=== PATIENT | female | born 1990 | race African-American/Black ===

== ENCOUNTER 2020-09-19 21:17 | Inpatient (IN) | payer MEDICAID ==
--- NOTE | 2020-09-19 21:26 | History and Physical Report ---
History of Present Illness Date of examination: 09/19/20 (IOL d/t IUGR) Date of admission: 09/19/20 Chief complaint: I'm here to be induced. History of present illness: Pt presented her first [facility] appointment d/t size smaller than dates in the office. She was found to IUGR, overall growth less than 4th% and AC less than 1%. Per [facility] recommendation, pt was told to come in for IOL @ 1999 on 09/19. EDC Confirmation: 10/09/2020 Gestational Age: 37.1 weeks on date of admission Past History : 1 Term Births: 0 Premature Births: 0 Living Children: 0 Para: 0 Mult. Births: 0 Prev : 0 Prev. attempt? 0 Aborta: 0 Elect. Ab: 0 Spont. Ab: 0 Ectopics: 0 Risk Factors: Smoked Tobacco Use: Never smoker Smokeless Tobacco Use: Never Passive smoke exposure: no Drug use: no HIV high-risk behavior: low risk Alcohol use: no Dietary Counseling: pn yes Past Medical History: Negative Past Medical History Past Surgical History: Negative Past Surgical History Past Medical History Surgery (Non-cook fish eggs): Negative Past Surgical History Abnormal PAP: negative ASHISH Exposure: negative Infertility: negative Uterine Anomaly: negative Uterine Surgery (not C/S): negative Other Gynecologic Problems: negative Family Hx: heart disease - father, 2019 DM - mother's side Social Hx: single Infection History Hx of STD: none HIV Risk Eval: low risk Hepatitis B Risk Eval: low risk Personal hx. of genital herpes: no Varicella/Chicken Pox Status: Previous Disease Genetic History Congenital Heart Defect: Mom: no Dad: no Delia Disease: Mom: no Dad: no Thalassemia Mom: no Dad: no Neural Tube Defect Mom: no Dad: no Down's Syndrome Mom: no Dad: no Isaias-Sachs Mom: no Dad: no Sickle Cell Disease/Trait Mom: no Dad: no Hemophilia Mom: no Dad: no Muscular Dystrophy Mom: no Dad: no Cystic Fibrosis Mom: no Dad: no Callahan Chorea Mom: no Dad: no Mental Retardation Mom: no Dad: no Fragile X Mom: no Dad: no Other Genetic/Chromosomal Disorder Mom: no Dad: no Child w/other defect Mom: no Dad: no Enviromental Exposures Xray Exposure: no Medication, drug, or alcohol use since LMP: no Chemical/Other Exposure: no Exposure to Cat Liter: no Hx of Parvovirus (Fifth Disease): no Occupational Exposure to Children: none Current Allergies: No known allergies Past History Past Medical History: no pertinent history Past Surgical History: no surgical history Family/Genetic History: diabetes, heart disease Social history: no significant social history - Obstetrical History Expected Date of Delivery: 10/09/20 Actual Gestation: 37 Week(s) 2 Day(s) : 1 Para: 0 Hx # Term Pregnancies: 0 Number of Pregnancies: 0 Spontaneous Abortions: 0 Induced : 0 Number of Living Children: 0 Medications and Allergies Allergies Allergy/AdvReac Type Severity Reaction Status Date / Time No Known Allergies Allergy Verified 09/19/20 21:41 Review of Systems All systems: negative - Vital Signs Vital signs: IOL delayed d/t patient's late arrival to L&D. Pt was told to arrive @ 1999, but she did not arrive until well after 2100. Pt with many questions regarding why IOL was recommended and the risk of waiting until later for IOL. Discuss with patient finding at [facility] appointment. Absent of high blood pressures, and pt is a non smoker, it is possible that the IUGR could be the result of an issue with the placenta, or it could be genetic (as patient is small in stature). Pt asked what could happen if she waited for IOL. We discussed the risk of waiting could result in a stillborn infant. We also discussed the IOL process: it may take up to three days and the different methods and medications used for IOL. Pt then stated that she would like NO vaginal exams. Explained that some vaginal exams will be needed to check on process of labor and to let the provider know what the next plan would be in the IOL process. Pt and family member verbalized understanding. Pt was given the opportunity to ask additional questions and she stated that she had none and would like to proceed with IOL process. - Physical Exam Breasts: Positive: deferred Cardiovascular: Regular rate Lungs: Positive: Normal air movement Abdomen: Positive: normal appearance, soft Genitourinary (Female): Positive: normal external genitalia, normal perenium Vulva: both: normal Vagina: Positive: normal moisture Uterus: Positive: normal size, normal contour (For 37 weeks gestation. ) Extremities: Positive: normal - Obstetrical FHR: category 1 Uterine Contraction Monitor Mode: External Cervical Dilatation: 0 Cervical Effacement Percentage: 0 station: -3 Uterine Contraction Pattern: Absent Results Result Diagrams: 09/19/20 23:00 All other labs normal. GBS NEGATIVE HBsAg Screen Negative Negative *1 RPR Non Reactive Non Reactive *2 Rubella Antibodies, IgG 2.61 index Immune >0.99 *3 Non-immune <0.90 Equivocal 0.90 - 0.99 Immune >0.99 ABO Grouping O *4 Rh Factor Positive *5 Antibody Screen Negative Negative *6 Tests: (2) HB Solu + Rflx Fra (635461) Hemoglobin (Hgb) Solubility Negative Negative *31 Tests: (3) HIV Ag/Ab with Reflex (030342) HIV Screen 4th Generation wRfx Non Reactive Non Reactive *32 Tests: (5) HCV Ab w/Rflx to Verification ([id number]) ! HCV Ab <0.1 s/co ratio 0.0-0.9 *34 Tests: (6) Comment: ([id number]) ! Comment: SPRCS *35 Non reactive HCV antibody screen is consistent with no HCV infection, unless recent infection is suspected or other evidence exists to indicate HCV infection. Assessment and Plan A: 30 y.o. @ 37 + weeks, IOL d/t IUGR. - Patient Problems (1) Intrauterine growth restriction (IUGR) affecting care of mother, third trimester, single gestation Onset Date: ~09/19/20 Current Visit: Yes Status: Acute Plan to address problem: Admit to labor and delivery. Initiate IV. Draw admission labs. Start IOL with Cervidil. Continue to monitor status during labor through EFM. (2) 37 or more weeks gestation of Onset Date: ~09/19/20 Current Visit: Yes Status: Acute Plan to address problem: Monitor status through EFM.
[2020-09-19] MEDS ORDERED: LIDOCAINE (2%) 20 MG/1 ML VIAL 20 ML MDV INFILTRATI ONE (21:27)
[2020-09-19] MEDS ORDERED: TERBUTALINE 1 MG/1 ML INJ SUB-Q PRN (21:27)
[2020-09-19] MEDS ORDERED: METHYLERGONOVINE MALEATE 0.2 MG/ML VIAL IM PRN (21:27)
[2020-09-19] MEDS ORDERED: PROMETHAZINE 25 MG TAB PO PRN (21:27)
[2020-09-19] MEDS ORDERED: MINERAL OIL 30 ML ORAL LIQD PO PRN (21:27)
[2020-09-19] MEDS ORDERED: ONDANSETRON 4 MG/2 ML INJ IV PRN (21:27)
[2020-09-19] MEDS ORDERED: OXYTOCIN 10 UNIT/1 ML INJ IM PRN (21:27)
[2020-09-19] MEDS ORDERED: DINOPROSTONE 10 MG VAG SUPP VG ONE (21:27)
[2020-09-19] MEDS ORDERED: miSOPROStol 200 MCG TAB PR PRN (21:27)
[2020-09-19] MEDS ORDERED: LOPERAMIDE 2 MG CAP PO PRN (21:27)
[2020-09-19] MEDS ORDERED: ePHEDrine SULFATE 50 MG/1 ML INJ IV PRN (21:27)
[2020-09-19] MEDS ORDERED: CARBOPROST TROMETHAMINE 250 MCG/1 ML INJ IM PRN (21:27)
[2020-09-19] MEDS ORDERED: NALOXONE 0.4 MG/1 ML INJ IV PRN (21:27)
[2020-09-19] MEDS ORDERED: ACETAMINOPHEN 325 MG TAB PO PRN (21:27)
[2020-09-19] MEDS ORDERED: OXYTOCIN DRIP 30 UNITS/500 ML BAG IV SCH (22:00)
[2020-09-19] MEDS ORDERED: diphenhydrAMINE 25 MG CAP PO PRN (22:13)
[2020-09-19 23:20] LABS: Hematocrit 30.6 % (30.3-42.9); Hemoglobin 10.9 gm/dl (10.1-14.3); Mean Corpuscular HGB Conc 36 % (30-34); Mean Corpuscular Volume 80 fl (79-97); Platelet Count 200 K/mm3 (140-440); Red Blood Count 3.82 M/mm3 (3.65-5.03); Red Cell Distribution Width 13.8 % (13.2-15.2)
--- NOTE | 2020-09-20 06:40 | Progress Note ---
Assessment and Plan Cervidil due to be removed @ 1100. Pt asks that we limit her vaginal exams, deferred this AM Pt aware she will be checked when cervidil is removed. Cat 1 FHT. Occ mild ctx noted. Pt continues to question the dx of IUGR and rational for IOL We spoke for @ 20min this morning. Answered all her questions/concerns. Pt states she understands. P: continue with cervidil Will allow AM care and diet. Plan to start pitocin @ 1300 Subjective - Subjective Date of service: 09/20/20 (Pt sitting up in bed States she does have some mild ctx) Principal diagnosis: IUGR @ 37w Patient reports: movement normal Objective - Vital Signs Vital Signs: Vital Signs - 12hr 09/19/20 09/19/20 09/19/20 21:32 22:22 22:27 Temperature 98.2 F Pulse Rate 95 H 100 H 108 H Respiratory 12 Rate Blood Pressure Blood Pressure 112/70 [Left] O2 Sat by Pulse 98 98 98 Oximetry 09/19/20 09/19/20 09/19/20 22:32 22:37 22:42 Temperature Pulse Rate 107 H 91 H 98 H Respiratory Rate Blood Pressure 112/70 Blood Pressure [Left] O2 Sat by Pulse 97 98 98 Oximetry 09/19/20 09/19/20 09/19/20 22:47 22:52 22:57 Temperature Pulse Rate 95 H 95 H 94 H Respiratory Rate Blood Pressure Blood Pressure [Left] O2 Sat by Pulse 99 99 100 Oximetry 09/19/20 09/19/20 09/19/20 23:02 23:07 23:12 Temperature Pulse Rate 92 H 94 H 89 Respiratory Rate Blood Pressure Blood Pressure [Left] O2 Sat by Pulse 99 99 99 Oximetry 09/19/20 09/19/20 09/19/20 23:17 23:22 23:27 Temperature Pulse Rate 92 H 84 82 Respiratory Rate Blood Pressure Blood Pressure [Left] O2 Sat by Pulse 99 99 100 Oximetry 09/19/20 09/19/20 09/19/20 23:32 23:37 23:42 Temperature Pulse Rate 94 H 93 H 95 H Respiratory Rate Blood Pressure Blood Pressure [Left] O2 Sat by Pulse 100 99 98 Oximetry 09/19/20 09/19/20 09/19/20 23:47 23:52 23:57 Temperature Pulse Rate 95 H 92 H 89 Respiratory Rate Blood Pressure Blood Pressure [Left] O2 Sat by Pulse 100 96 98 Oximetry 09/20/20 09/20/20 09/20/20 00:02 00:07 00:12 Temperature Pulse Rate 85 92 H 99 H Respiratory Rate Blood Pressure Blood Pressure [Left] O2 Sat by Pulse 99 99 99 Oximetry 09/20/20 09/20/20 09/20/20 00:17 00:22 00:27 Temperature Pulse Rate 91 H 98 H 104 H Respiratory Rate Blood Pressure Blood Pressure [Left] O2 Sat by Pulse 99 99 99 Oximetry 09/20/20 09/20/20 09/20/20 00:32 00:37 00:42 Temperature Pulse Rate 92 H 92 H 88 Respiratory Rate Blood Pressure Blood Pressure [Left] O2 Sat by Pulse 100 99 99 Oximetry 09/20/20 09/20/20 09/20/20 00:47 00:52 00:57 Temperature Pulse Rate 91 H 86 84 Respiratory Rate Blood Pressure Blood Pressure [Left] O2 Sat by Pulse 99 99 99 Oximetry 09/20/20 01:02 Temperature Pulse Rate 99 H Respiratory Rate Blood Pressure Blood Pressure [Left] O2 Sat by Pulse 97 Oximetry - Exam Breasts: deferred Cardiovascular: Regular rate Lungs: Normal air movement Abdomen: Present: normal appearance, soft. Absent: distention, tenderness Uterus: Present: normal FHR: auscultation normal, category 1 Uterine Contraction Monitor Mode: External Uterine Contraction Pattern: Irregular Uterine Tone Measurement Phase: Resting Uterine Contraction Intensity: Mild Extremities: normal Deep Tendon Reflex Grade: Normal +2 - Labs Labs: Abnormal Labs 09/19/20 23:00 MCHC 36 H Laboratory Results - last 24 hr 09/19/20 09/19/20 09/20/20 23:00 23:00 00:50 WBC 8.2 RBC 3.82 Hgb 10.9 Hct 30.6 MCV 80 MCH 29 MCHC 36 H RDW 13.8 Plt Count 200 Syphilis IgG Antibody Nonreactive Blood Type O POSITIVE Antibody Screen Negative
[2020-09-20] MEDS ORDERED: DINOPROSTONE 10 MG VAG SUPP VG ONE (15:00)
--- NOTE | 2020-09-20 22:18 | Progress Note ---
Assessment and Plan - Patient Problems (1) 37 or more weeks gestation of Onset Date: ~09/19/20 Current Visit: Yes Status: Acute Plan to address problem: FHT's cat 1 Serial IOL explained. Cervidil to be removed @3a, will allow rest and am care then reassess for IOL. Patient voiced understanding and agrees with POC (2) Intrauterine growth restriction (IUGR) affecting care of mother, third trimester, single gestation Onset Date: ~09/19/20 Current Visit: Yes Status: Acute Subjective - Subjective Date of service: 09/20/20 Principal diagnosis: IUGR @ 37w Patient reports: movement normal Objective - Vital Signs Vital Signs: Vital Signs - 12hr 09/20/20 09/20/20 09/20/20 10:19 10:27 10:32 Temperature Pulse Rate 85 110 H 83 Blood Pressure O2 Sat by Pulse 100 99 99 Oximetry 09/20/20 09/20/20 09/20/20 10:37 10:42 10:47 Temperature Pulse Rate 98 H 88 91 H Blood Pressure O2 Sat by Pulse 100 99 100 Oximetry 09/20/20 09/20/20 09/20/20 10:52 10:57 11:02 Temperature Pulse Rate 93 H 94 H 87 Blood Pressure O2 Sat by Pulse 100 98 99 Oximetry 09/20/20 09/20/20 09/20/20 11:07 11:12 11:17 Temperature Pulse Rate 95 H 99 H 96 H Blood Pressure O2 Sat by Pulse 100 98 99 Oximetry 09/20/20 09/20/20 09/20/20 11:22 11:27 11:32 Temperature Pulse Rate 93 H 91 H 96 H Blood Pressure O2 Sat by Pulse 99 99 100 Oximetry 09/20/20 09/20/20 09/20/20 11:37 11:42 11:51 Temperature Pulse Rate 90 93 H 94 H Blood Pressure O2 Sat by Pulse 100 99 99 Oximetry 09/20/20 09/20/20 09/20/20 11:56 12:01 12:04 Temperature Pulse Rate 84 72 Blood Pressure O2 Sat by Pulse 100 76 L 89 Oximetry 09/20/20 09/20/20 09/20/20 12:07 12:14 12:43 Temperature Pulse Rate 96 H Blood Pressure O2 Sat by Pulse 91 80 L 91 Oximetry 09/20/20 09/20/20 09/20/20 12:46 12:51 12:56 Temperature Pulse Rate 157 H 88 81 Blood Pressure O2 Sat by Pulse 83 L 97 96 Oximetry 09/20/20 09/20/20 09/20/20 13:01 13:06 13:11 Temperature Pulse Rate 81 94 H 94 H Blood Pressure O2 Sat by Pulse 98 98 98 Oximetry 09/20/20 09/20/20 09/20/20 13:16 13:21 13:26 Temperature Pulse Rate 85 100 H 91 H Blood Pressure O2 Sat by Pulse 99 98 99 Oximetry 09/20/20 09/20/20 09/20/20 13:31 13:36 13:41 Temperature Pulse Rate 84 88 85 Blood Pressure O2 Sat by Pulse 99 98 97 Oximetry 09/20/20 09/20/20 09/20/20 13:46 13:51 13:56 Temperature Pulse Rate 106 H 90 93 H Blood Pressure O2 Sat by Pulse 98 99 98 Oximetry 09/20/20 09/20/20 09/20/20 14:01 14:06 14:08 Temperature Pulse Rate 96 H 96 H 88 Blood Pressure 128/82 O2 Sat by Pulse 99 98 Oximetry 09/20/20 09/20/20 09/20/20 14:19 14:24 14:29 Temperature Pulse Rate 94 H 108 H 90 Blood Pressure O2 Sat by Pulse 99 99 98 Oximetry 09/20/20 09/20/20 09/20/20 14:34 14:39 14:47 Temperature Pulse Rate 103 H 96 H 111 H Blood Pressure O2 Sat by Pulse 98 99 99 Oximetry 09/20/20 09/20/20 09/20/20 14:52 14:57 15:00 Temperature 98.4 F Pulse Rate 99 H 90 Blood Pressure 117/72 O2 Sat by Pulse 99 98 Oximetry 09/20/20 09/20/20 09/20/20 15:02 15:07 15:12 Temperature Pulse Rate 89 88 91 H Blood Pressure O2 Sat by Pulse 99 99 98 Oximetry 09/20/20 09/20/20 09/20/20 15:17 15:22 15:27 Temperature Pulse Rate 87 84 82 Blood Pressure O2 Sat by Pulse 98 98 98 Oximetry 09/20/20 09/20/20 09/20/20 15:32 15:37 15:42 Temperature Pulse Rate 94 H 93 H 90 Blood Pressure O2 Sat by Pulse 99 99 98 Oximetry 09/20/20 09/20/20 09/20/20 15:47 15:52 15:57 Temperature Pulse Rate 83 82 84 Blood Pressure O2 Sat by Pulse 97 98 98 Oximetry 09/20/20 09/20/20 09/20/20 16:02 16:07 16:12 Temperature Pulse Rate 104 H 88 88 Blood Pressure O2 Sat by Pulse 98 99 99 Oximetry 09/20/20 09/20/20 09/20/20 16:17 16:22 16:27 Temperature Pulse Rate 85 88 87 Blood Pressure O2 Sat by Pulse 98 98 98 Oximetry 09/20/20 09/20/20 09/20/20 16:32 16:42 16:47 Temperature Pulse Rate 94 H 86 83 Blood Pressure O2 Sat by Pulse 97 96 99 Oximetry 09/20/20 09/20/20 09/20/20 16:52 16:57 17:02 Temperature Pulse Rate 85 84 86 Blood Pressure O2 Sat by Pulse 97 98 98 Oximetry 09/20/20 09/20/20 09/20/20 17:07 17:12 17:17 Temperature Pulse Rate 81 82 78 Blood Pressure O2 Sat by Pulse 98 98 98 Oximetry 09/20/20 09/20/20 09/20/20 17:22 17:27 17:32 Temperature Pulse Rate 99 H 84 77 Blood Pressure O2 Sat by Pulse 99 98 98 Oximetry 09/20/20 09/20/20 09/20/20 17:37 17:42 17:47 Temperature Pulse Rate 82 74 81 Blood Pressure O2 Sat by Pulse 97 97 99 Oximetry 09/20/20 09/20/20 09/20/20 17:52 17:57 18:00 Temperature 97.9 F Pulse Rate 88 81 Blood Pressure O2 Sat by Pulse 98 98 Oximetry 09/20/20 09/20/20 09/20/20 18:02 18:07 18:12 Temperature Pulse Rate 80 80 86 Blood Pressure O2 Sat by Pulse 97 98 98 Oximetry 09/20/20 09/20/20 09/20/20 18:17 18:22 18:27 Temperature Pulse Rate 79 75 82 Blood Pressure O2 Sat by Pulse 97 98 98 Oximetry 09/20/20 09/20/20 09/20/20 18:32 18:37 18:42 Temperature Pulse Rate 78 78 78 Blood Pressure O2 Sat by Pulse 98 97 98 Oximetry 09/20/20 09/20/20 09/20/20 18:47 18:52 18:57 Temperature Pulse Rate 75 77 79 Blood Pressure O2 Sat by Pulse 98 97 99 Oximetry 09/20/20 09/20/20 09/20/20 19:02 19:07 19:11 Temperature Pulse Rate 80 86 92 H Blood Pressure 109/58 O2 Sat by Pulse 98 99 Oximetry 09/20/20 09/20/20 09/20/20 19:12 19:15 19:17 Temperature 98.1 F Pulse Rate 98 H 90 Blood Pressure O2 Sat by Pulse 99 99 Oximetry 09/20/20 09/20/20 09/20/20 19:27 19:32 19:37 Temperature Pulse Rate 102 H 92 H 89 Blood Pressure O2 Sat by Pulse 98 98 98 Oximetry 09/20/20 09/20/20 09/20/20 19:42 19:47 19:52 Temperature Pulse Rate 90 100 H 89 Blood Pressure O2 Sat by Pulse 98 98 99 Oximetry 09/20/20 09/20/20 09/20/20 19:57 20:02 20:07 Temperature Pulse Rate 91 H 94 H 98 H Blood Pressure O2 Sat by Pulse 99 100 98 Oximetry 09/20/20 09/20/20 09/20/20 20:12 20:17 20:22 Temperature Pulse Rate 94 H 90 86 Blood Pressure O2 Sat by Pulse 99 99 99 Oximetry 09/20/20 09/20/20 09/20/20 20:27 20:32 20:37 Temperature Pulse Rate 96 H 93 H 98 H Blood Pressure O2 Sat by Pulse 98 99 97 Oximetry 09/20/20 09/20/20 09/20/20 20:42 20:47 20:52 Temperature Pulse Rate 101 H 90 94 H Blood Pressure O2 Sat by Pulse 100 98 98 Oximetry 09/20/20 09/20/20 09/20/20 20:57 21:02 21:07 Temperature Pulse Rate 97 H 87 86 Blood Pressure O2 Sat by Pulse 98 98 98 Oximetry 09/20/20 09/20/20 09/20/20 21:12 21:17 21:22 Temperature Pulse Rate 102 H 86 98 H Blood Pressure O2 Sat by Pulse 98 97 98 Oximetry 09/20/20 09/20/20 09/20/20 21:27 21:32 21:37 Temperature Pulse Rate 92 H 99 H 91 H Blood Pressure O2 Sat by Pulse 99 99 99 Oximetry 09/20/20 09/20/20 09/20/20 21:42 21:47 21:58 Temperature Pulse Rate 89 89 87 Blood Pressure O2 Sat by Pulse 99 99 98 Oximetry 09/20/20 09/20/20 09/20/20 22:03 22:08 22:13 Temperature Pulse Rate 95 H 101 H 92 H Blood Pressure O2 Sat by Pulse 99 97 98 Oximetry - Labs Labs: Abnormal Labs 09/19/20 23:00 MCHC 36 H Laboratory Results - last 24 hr 09/19/20 09/19/20 09/20/20 23:00 23:00 00:50 WBC 8.2 RBC 3.82 Hgb 10.9 Hct 30.6 MCV 80 MCH 29 MCHC 36 H RDW 13.8 Plt Count 200 Syphilis IgG Antibody Nonreactive Coronavirus (PCR) Blood Type O POSITIVE Antibody Screen Negative 09/20/20 08:30 WBC RBC Hgb Hct MCV MCH MCHC RDW Plt Count Syphilis IgG Antibody Coronavirus (PCR) Negative Blood Type Antibody Screen
--- NOTE | 2020-09-21 07:23 | Progress Note ---
Assessment and Plan A: 30 y.o. @ 37.3 wks, IOL for IUGR. Cervical exam 0.5/40/-3. P: Continue with IOL. Allow to shower and eat. Will insert Cytotec after shower and breakfast. - Patient Problems (1) Intrauterine growth restriction (IUGR) affecting care of mother, third trimester, single gestation Onset Date: ~09/19/20 Current Visit: Yes Status: Acute (2) 37 or more weeks gestation of Onset Date: ~09/19/20 Current Visit: Yes Status: Acute Subjective - Subjective Date of service: 09/21/20 Principal diagnosis: IOL for IUGR @ 37.3 weeks Patient reports: movement normal Objective - Vital Signs Vital Signs: Vital Signs - 12hr 09/20/20 09/20/20 09/20/20 19:27 19:32 19:37 Temperature Pulse Rate 102 H 92 H 89 Respiratory Rate O2 Sat by Pulse 98 98 98 Oximetry 09/20/20 09/20/20 09/20/20 19:42 19:47 19:52 Temperature Pulse Rate 90 100 H 89 Respiratory Rate O2 Sat by Pulse 98 98 99 Oximetry 09/20/20 09/20/20 09/20/20 19:57 20:02 20:07 Temperature Pulse Rate 91 H 94 H 98 H Respiratory Rate O2 Sat by Pulse 99 100 98 Oximetry 09/20/20 09/20/20 09/20/20 20:12 20:17 20:22 Temperature Pulse Rate 94 H 90 86 Respiratory Rate O2 Sat by Pulse 99 99 99 Oximetry 09/20/20 09/20/20 09/20/20 20:27 20:32 20:37 Temperature Pulse Rate 96 H 93 H 98 H Respiratory Rate O2 Sat by Pulse 98 99 97 Oximetry 09/20/20 09/20/20 09/20/20 20:42 20:47 20:52 Temperature Pulse Rate 101 H 90 94 H Respiratory Rate O2 Sat by Pulse 100 98 98 Oximetry 09/20/20 09/20/20 09/20/20 20:57 21:02 21:07 Temperature Pulse Rate 97 H 87 86 Respiratory Rate O2 Sat by Pulse 98 98 98 Oximetry 09/20/20 09/20/20 09/20/20 21:12 21:17 21:22 Temperature Pulse Rate 102 H 86 98 H Respiratory Rate O2 Sat by Pulse 98 97 98 Oximetry 09/20/20 09/20/20 09/20/20 21:27 21:32 21:37 Temperature Pulse Rate 92 H 99 H 91 H Respiratory Rate O2 Sat by Pulse 99 99 99 Oximetry 09/20/20 09/20/20 09/20/20 21:42 21:47 21:58 Temperature Pulse Rate 89 89 87 Respiratory Rate O2 Sat by Pulse 99 99 98 Oximetry 09/20/20 09/20/20 09/20/20 22:03 22:08 22:13 Temperature Pulse Rate 95 H 101 H 92 H Respiratory Rate O2 Sat by Pulse 99 97 98 Oximetry 09/20/20 09/20/20 09/20/20 22:18 22:23 22:28 Temperature Pulse Rate 87 102 H 95 H Respiratory Rate O2 Sat by Pulse 98 98 98 Oximetry 09/20/20 09/20/20 09/20/20 22:33 22:38 22:43 Temperature Pulse Rate 89 82 80 Respiratory Rate O2 Sat by Pulse 99 98 99 Oximetry 09/20/20 09/20/20 09/20/20 22:48 22:53 22:58 Temperature Pulse Rate 88 86 85 Respiratory Rate O2 Sat by Pulse 99 99 96 Oximetry 09/20/20 09/20/20 09/20/20 23:08 23:27 23:32 Temperature Pulse Rate 96 H 89 82 Respiratory Rate O2 Sat by Pulse 98 98 99 Oximetry 09/20/20 09/20/20 09/20/20 23:37 23:42 23:50 Temperature Pulse Rate 94 H 97 H 87 Respiratory Rate O2 Sat by Pulse 98 98 98 Oximetry 09/20/20 09/21/20 09/21/20 23:55 00:00 00:05 Temperature Pulse Rate 84 95 H 91 H Respiratory Rate O2 Sat by Pulse 98 97 98 Oximetry 09/21/20 09/21/20 09/21/20 00:10 00:15 00:20 Temperature Pulse Rate 84 88 94 H Respiratory Rate O2 Sat by Pulse 99 97 99 Oximetry 09/21/20 09/21/20 09/21/20 00:25 00:30 00:35 Temperature Pulse Rate 79 80 84 Respiratory Rate O2 Sat by Pulse 99 98 97 Oximetry 09/21/20 09/21/20 09/21/20 00:40 00:45 00:50 Temperature Pulse Rate 92 H 90 92 H Respiratory Rate O2 Sat by Pulse 99 99 99 Oximetry 09/21/20 09/21/20 09/21/20 00:55 01:00 01:05 Temperature Pulse Rate 84 97 H 82 Respiratory Rate O2 Sat by Pulse 99 98 98 Oximetry 09/21/20 09/21/20 09/21/20 01:10 01:15 01:20 Temperature Pulse Rate 103 H 84 80 Respiratory Rate O2 Sat by Pulse 98 99 99 Oximetry 09/21/20 09/21/20 09/21/20 01:25 01:30 01:35 Temperature 98.9 F Pulse Rate 89 87 96 H Respiratory 17 Rate O2 Sat by Pulse 99 99 98 Oximetry 09/21/20 09/21/20 09/21/20 01:40 01:45 01:50 Temperature Pulse Rate 88 100 H 82 Respiratory Rate O2 Sat by Pulse 98 99 97 Oximetry 09/21/20 09/21/20 09/21/20 01:55 02:00 02:05 Temperature Pulse Rate 90 106 H 98 H Respiratory Rate O2 Sat by Pulse 99 98 98 Oximetry 09/21/20 09/21/20 09/21/20 02:10 02:20 02:25 Temperature Pulse Rate 94 H 103 H 94 H Respiratory Rate O2 Sat by Pulse 99 99 99 Oximetry 09/21/20 09/21/20 09/21/20 02:30 02:35 02:40 Temperature Pulse Rate 93 H 91 H 91 H Respiratory Rate O2 Sat by Pulse 99 96 99 Oximetry 09/21/20 09/21/20 09/21/20 02:45 02:50 02:55 Temperature Pulse Rate 92 H 90 92 H Respiratory Rate O2 Sat by Pulse 98 97 98 Oximetry 09/21/20 09/21/20 09/21/20 03:00 03:05 03:10 Temperature Pulse Rate 93 H 84 81 Respiratory Rate O2 Sat by Pulse 97 99 99 Oximetry 09/21/20 09/21/20 09/21/20 03:15 03:20 03:25 Temperature Pulse Rate 81 84 84 Respiratory Rate O2 Sat by Pulse 99 98 98 Oximetry 09/21/20 09/21/20 09/21/20 03:30 03:35 03:40 Temperature Pulse Rate 86 82 81 Respiratory Rate O2 Sat by Pulse 98 98 98 Oximetry 09/21/20 09/21/20 09/21/20 03:45 03:50 03:55 Temperature Pulse Rate 81 84 83 Respiratory Rate O2 Sat by Pulse 97 97 98 Oximetry 09/21/20 09/21/20 09/21/20 04:00 04:05 04:10 Temperature Pulse Rate 89 99 H 87 Respiratory Rate O2 Sat by Pulse 97 100 98 Oximetry 09/21/20 09/21/20 09/21/20 04:15 04:20 04:25 Temperature Pulse Rate 81 83 104 H Respiratory Rate O2 Sat by Pulse 98 99 98 Oximetry 09/21/20 09/21/20 09/21/20 04:30 04:35 04:40 Temperature Pulse Rate 83 93 H 94 H Respiratory Rate O2 Sat by Pulse 99 98 98 Oximetry 09/21/20 09/21/20 09/21/20 04:45 04:50 04:55 Temperature Pulse Rate 103 H 82 86 Respiratory Rate O2 Sat by Pulse 97 98 98 Oximetry 09/21/20 09/21/20 09/21/20 05:00 05:05 05:10 Temperature Pulse Rate 85 82 86 Respiratory Rate O2 Sat by Pulse 98 98 98 Oximetry 09/21/20 09/21/20 09/21/20 05:15 05:20 05:25 Temperature Pulse Rate 80 87 87 Respiratory Rate O2 Sat by Pulse 98 98 98 Oximetry 09/21/20 09/21/20 09/21/20 05:30 05:35 05:40 Temperature Pulse Rate 91 H 95 H 96 H Respiratory Rate O2 Sat by Pulse 98 98 98 Oximetry 09/21/20 09/21/20 09/21/20 05:45 05:50 05:55 Temperature Pulse Rate 94 H 97 H 94 H Respiratory Rate O2 Sat by Pulse 98 98 97 Oximetry 09/21/20 09/21/20 09/21/20 06:00 06:05 06:10 Temperature Pulse Rate 92 H 95 H 96 H Respiratory Rate O2 Sat by Pulse 98 98 98 Oximetry 09/21/20 09/21/20 09/21/20 06:15 06:20 06:25 Temperature Pulse Rate 95 H 99 H 87 Respiratory Rate O2 Sat by Pulse 98 98 97 Oximetry 09/21/20 09/21/20 09/21/20 06:30 06:35 06:40 Temperature Pulse Rate 85 85 82 Respiratory Rate O2 Sat by Pulse 97 99 98 Oximetry 09/21/20 09/21/20 09/21/20 06:45 06:50 06:55 Temperature Pulse Rate 88 82 95 H Respiratory Rate O2 Sat by Pulse 98 97 98 Oximetry 09/21/20 09/21/20 09/21/20 07:00 07:05 07:11 Temperature Pulse Rate 89 98 H 98 H Respiratory Rate O2 Sat by Pulse 98 99 99 Oximetry 09/21/20 07:16 Temperature Pulse Rate 87 Respiratory Rate O2 Sat by Pulse 100 Oximetry - Exam Narrative Exam: Pt is very afraid of vaginal exams and would like them limited. Discussed that her cervix would need to be checked this AM in order development of plan. Coached and talked patient through vaginal exam this AM. Cervical exam 0.5/40/- 3. Discussed option to use Cytotec with the first dose vaginal and then can do subsequent doses by mouth. We also discussed that this plan may change based on how her body responds and status. Pt verbalized understanding and agrees to plan. Will allow the patient to shower and eat, then insert Cytotec at approximately 0900am. Breasts: deferred Cardiovascular: Regular rate Lungs: Normal air movement Abdomen: Present: normal appearance, soft Vulva: both: normal Uterus: Present: normal FHR: category 1 Uterine Contraction Monitor Mode: External Cervical Dilatation: 0.5 Cervical Effacement Percentage: 40 station: -3 Uterine Contraction Pattern: Irregular Uterine Tone Measurement Phase: Resting Uterine Contraction Intensity: Mild Extremities: normal - Labs Labs: Abnormal Labs 09/19/20 23:00 MCHC 36 H Laboratory Results - last 24 hr 09/20/20 08:30 Coronavirus (PCR) Negative
[2020-09-21] MEDS ORDERED: miSOPROStol 25 MCG TAB VG SCH (08:00)
[2020-09-21] MEDS ORDERED: miSOPROStol 25 MCG TAB PO SCH ×2 (13:00→16:50)
[2020-09-21] MEDS: LACTATED RINGERS 1,000 ML IV SCH ×2 (14:56→22:28)
--- NOTE | 2020-09-21 17:33 | Progress Note ---
Assessment and Plan A: 30 y.o. @ 37.3 wks, IOL d/t IUGR. Vaginal exam deferred. Pt not feeling ctxs. P: Will stop Cytotec. Allow patient to eat dinner. Will start low dose Pitocin after patient eats dinner. - Patient Problems (1) Intrauterine growth restriction (IUGR) affecting care of mother, third trimester, single gestation Onset Date: ~09/19/20 Current Visit: Yes Status: Acute (2) 37 or more weeks gestation of Onset Date: ~09/19/20 Current Visit: Yes Status: Acute Subjective - Subjective Date of service: 09/21/20 (Pt with questions regarding monitoring.) Principal diagnosis: IOL for IUGR @ 37.3 weeks Patient reports: movement normal Objective - Vital Signs Vital Signs: Vital Signs - 12hr 09/21/20 09/21/20 09/21/20 05:30 05:35 05:40 Temperature Pulse Rate 91 H 95 H 96 H Blood Pressure O2 Sat by Pulse 98 98 98 Oximetry 09/21/20 09/21/20 09/21/20 05:45 05:50 05:55 Temperature Pulse Rate 94 H 97 H 94 H Blood Pressure O2 Sat by Pulse 98 98 97 Oximetry 09/21/20 09/21/20 09/21/20 06:00 06:05 06:10 Temperature Pulse Rate 92 H 95 H 96 H Blood Pressure O2 Sat by Pulse 98 98 98 Oximetry 09/21/20 09/21/20 09/21/20 06:15 06:20 06:25 Temperature Pulse Rate 95 H 99 H 87 Blood Pressure O2 Sat by Pulse 98 98 97 Oximetry 09/21/20 09/21/20 09/21/20 06:30 06:35 06:40 Temperature Pulse Rate 85 85 82 Blood Pressure O2 Sat by Pulse 97 99 98 Oximetry 09/21/20 09/21/20 09/21/20 06:45 06:50 06:55 Temperature Pulse Rate 88 82 95 H Blood Pressure O2 Sat by Pulse 98 97 98 Oximetry 09/21/20 09/21/20 09/21/20 07:00 07:05 07:11 Temperature Pulse Rate 89 98 H 98 H Blood Pressure O2 Sat by Pulse 98 99 99 Oximetry 09/21/20 09/21/20 09/21/20 07:16 07:21 07:23 Temperature Pulse Rate 87 91 H 92 H Blood Pressure 107/64 O2 Sat by Pulse 100 98 Oximetry 09/21/20 09/21/20 09/21/20 07:24 09:00 09:05 Temperature 97.9 F Pulse Rate 87 101 H Blood Pressure O2 Sat by Pulse 94 98 Oximetry 09/21/20 09/21/20 09/21/20 09:10 09:15 09:20 Temperature Pulse Rate 100 H 102 H 88 Blood Pressure O2 Sat by Pulse 99 97 98 Oximetry 09/21/20 09/21/20 09/21/20 09:25 09:30 09:35 Temperature Pulse Rate 91 H 91 H 84 Blood Pressure O2 Sat by Pulse 98 98 99 Oximetry 09/21/20 09/21/20 09/21/20 09:40 09:45 09:50 Temperature Pulse Rate 86 87 89 Blood Pressure O2 Sat by Pulse 98 98 98 Oximetry 09/21/20 09/21/20 09/21/20 09:55 10:00 10:05 Temperature Pulse Rate 90 89 92 H Blood Pressure O2 Sat by Pulse 97 97 97 Oximetry 09/21/20 09/21/20 09/21/20 10:10 10:15 10:20 Temperature Pulse Rate 95 H 101 H 90 Blood Pressure O2 Sat by Pulse 97 96 97 Oximetry 09/21/20 09/21/20 09/21/20 10:25 10:30 10:35 Temperature Pulse Rate 88 86 89 Blood Pressure O2 Sat by Pulse 97 98 97 Oximetry 09/21/20 09/21/20 09/21/20 10:40 10:45 10:50 Temperature Pulse Rate 84 87 85 Blood Pressure O2 Sat by Pulse 97 97 97 Oximetry 09/21/20 09/21/20 09/21/20 10:55 11:00 11:05 Temperature Pulse Rate 84 82 86 Blood Pressure O2 Sat by Pulse 97 98 98 Oximetry 09/21/20 09/21/20 09/21/20 11:10 11:15 11:20 Temperature Pulse Rate 90 92 H 90 Blood Pressure O2 Sat by Pulse 98 98 98 Oximetry 09/21/20 09/21/20 09/21/20 11:25 11:30 11:35 Temperature Pulse Rate 86 84 89 Blood Pressure O2 Sat by Pulse 98 98 97 Oximetry 09/21/20 09/21/20 09/21/20 11:39 11:40 11:45 Temperature Pulse Rate 96 H 86 84 Blood Pressure O2 Sat by Pulse 94 98 97 Oximetry 09/21/20 09/21/20 09/21/20 11:50 11:55 12:00 Temperature Pulse Rate 87 89 88 Blood Pressure O2 Sat by Pulse 97 98 98 Oximetry 09/21/20 09/21/20 09/21/20 12:05 12:10 12:15 Temperature Pulse Rate 94 H 97 H 99 H Blood Pressure O2 Sat by Pulse 98 98 99 Oximetry 09/21/20 09/21/20 09/21/20 12:20 12:25 12:27 Temperature Pulse Rate 98 H 102 H Blood Pressure O2 Sat by Pulse 99 99 83 L Oximetry 09/21/20 09/21/20 09/21/20 12:32 12:33 12:38 Temperature Pulse Rate 102 H 87 Blood Pressure O2 Sat by Pulse 93 99 98 Oximetry 09/21/20 09/21/20 09/21/20 12:42 12:43 12:48 Temperature Pulse Rate 90 98 H 95 H Blood Pressure 110/68 O2 Sat by Pulse 98 99 Oximetry 09/21/20 09/21/20 09/21/20 12:53 12:58 13:01 Temperature Pulse Rate 89 92 H 85 Blood Pressure 106/67 O2 Sat by Pulse 99 98 Oximetry 09/21/20 09/21/20 09/21/20 13:03 13:08 13:13 Temperature Pulse Rate 93 H 89 95 H Blood Pressure O2 Sat by Pulse 98 98 98 Oximetry 09/21/20 09/21/20 09/21/20 13:18 13:23 13:28 Temperature Pulse Rate 104 H 98 H 94 H Blood Pressure O2 Sat by Pulse 98 98 98 Oximetry 09/21/20 09/21/20 09/21/20 13:30 13:33 13:38 Temperature Pulse Rate 93 H 94 H 89 Blood Pressure 105/67 O2 Sat by Pulse 98 98 Oximetry 09/21/20 09/21/20 09/21/20 13:43 13:54 13:59 Temperature Pulse Rate 81 93 H 99 H Blood Pressure O2 Sat by Pulse 99 100 99 Oximetry 09/21/20 09/21/20 09/21/20 14:01 14:04 14:09 Temperature Pulse Rate 86 86 89 Blood Pressure 118/84 O2 Sat by Pulse 98 99 Oximetry 09/21/20 09/21/20 09/21/20 14:14 14:19 14:24 Temperature Pulse Rate 94 H 90 92 H Blood Pressure O2 Sat by Pulse 98 98 98 Oximetry 09/21/20 09/21/20 09/21/20 14:29 14:30 14:34 Temperature Pulse Rate 92 H 80 84 Blood Pressure 117/70 O2 Sat by Pulse 99 99 Oximetry 09/21/20 09/21/20 09/21/20 14:39 14:44 14:46 Temperature Pulse Rate 89 90 79 Blood Pressure O2 Sat by Pulse 98 99 92 Oximetry 09/21/20 09/21/20 09/21/20 14:51 14:56 15:00 Temperature Pulse Rate 110 H 81 78 Blood Pressure 102/67 O2 Sat by Pulse 100 99 Oximetry 09/21/20 09/21/20 09/21/20 15:01 15:06 15:11 Temperature Pulse Rate 85 87 89 Blood Pressure O2 Sat by Pulse 98 99 99 Oximetry 09/21/20 09/21/20 09/21/20 15:16 15:21 15:26 Temperature Pulse Rate 86 87 83 Blood Pressure O2 Sat by Pulse 99 99 98 Oximetry 09/21/20 09/21/20 09/21/20 15:30 15:31 15:36 Temperature Pulse Rate 79 81 79 Blood Pressure 110/72 O2 Sat by Pulse 98 97 Oximetry 09/21/20 09/21/20 09/21/20 15:41 15:46 15:51 Temperature Pulse Rate 82 82 78 Blood Pressure O2 Sat by Pulse 98 98 98 Oximetry 09/21/20 09/21/20 09/21/20 15:56 16:00 16:01 Temperature Pulse Rate 73 77 78 Blood Pressure 100/61 O2 Sat by Pulse 98 99 Oximetry 09/21/20 09/21/20 09/21/20 16:06 16:11 16:16 Temperature Pulse Rate 82 83 96 H Blood Pressure O2 Sat by Pulse 99 99 100 Oximetry 09/21/20 09/21/20 09/21/20 16:21 16:26 16:31 Temperature Pulse Rate 90 84 81 Blood Pressure 112/77 O2 Sat by Pulse 98 99 100 Oximetry 09/21/20 09/21/20 09/21/20 16:40 16:45 16:50 Temperature Pulse Rate 92 H 82 94 H Blood Pressure O2 Sat by Pulse 99 99 99 Oximetry 09/21/20 09/21/20 09/21/20 16:55 17:00 17:05 Temperature Pulse Rate 84 88 89 Blood Pressure O2 Sat by Pulse 99 100 100 Oximetry 09/21/20 09/21/20 09/21/20 17:07 17:10 17:15 Temperature Pulse Rate 82 96 H 89 Blood Pressure 112/73 O2 Sat by Pulse 99 99 Oximetry 09/21/20 17:20 Temperature Pulse Rate 87 Blood Pressure O2 Sat by Pulse 99 Oximetry - Exam Narrative Exam: Vaginal exam deferred at this time d/t pt request. Pt states that she is not feeling contractions. Discussed plan for tonight, to let her eat dinner and then start low dose Pitocin. We also discussed again different methods of IOL and that IOL can take up to three days. Pt verbalized understanding. Breasts: deferred Cardiovascular: Regular rate Lungs: Normal air movement Abdomen: Present: normal appearance, soft FHR: category 1 Uterine Contraction Monitor Mode: External Uterine Contraction Pattern: Absent - Labs Labs: Abnormal Labs 09/19/20 23:00 MCHC 36 H
[2020-09-21] MEDS: OXYTOCIN DRIP 30 UNITS/500 ML BAG IV SCH (20:41)
--- NOTE | 2020-09-22 07:50 | Progress Note ---
Assessment and Plan pt resting, reports feeling stronger ctx last night while on low dose pitocin. Discussed plan for today - Breakfast, AM care and then starting pitocin by 9:15am. Will do pitocin 4x4 q30. Patient aware if she requires pain medication then a SVE will need to be performed to assess labor. Discussed w/ patient expectations of labor, all questions addressed. s/o in room on window seat. MONTSERRAT Kamara in room and aware of plan of care for today. - Patient Problems (1) 37 or more weeks gestation of Onset Date: ~09/19/20 Current Visit: Yes Status: Acute (2) Intrauterine growth restriction (IUGR) affecting care of mother, third trimester, single gestation Onset Date: ~09/19/20 Current Visit: Yes Status: Acute Subjective - Subjective Date of service: 09/22/20 Principal diagnosis: IOL for IUGR @ 37.4 weeks Patient reports: movement normal, contractions, no loss of fluid, no vaginal bleeding Objective - Vital Signs Vital Signs: Vital Signs - 12hr 09/21/20 09/21/20 09/21/20 19:47 19:52 19:57 Temperature Pulse Rate 107 H 103 H 99 H Blood Pressure O2 Sat by Pulse 99 98 99 Oximetry 09/21/20 09/21/20 09/21/20 20:02 20:04 20:07 Temperature Pulse Rate 99 H 91 H 95 H Blood Pressure 110/71 O2 Sat by Pulse 100 100 Oximetry 09/21/20 09/21/20 09/21/20 20:12 20:17 20:22 Temperature Pulse Rate 100 H 98 H 95 H Blood Pressure O2 Sat by Pulse 99 99 99 Oximetry 09/21/20 09/21/20 09/21/20 20:27 20:30 20:32 Temperature Pulse Rate 95 H 95 H 101 H Blood Pressure 115/68 O2 Sat by Pulse 99 100 Oximetry 09/21/20 09/21/20 09/21/20 20:37 20:42 20:47 Temperature Pulse Rate 101 H 106 H 94 H Blood Pressure O2 Sat by Pulse 99 100 99 Oximetry 09/21/20 09/21/20 09/21/20 20:52 20:57 21:13 Temperature Pulse Rate 99 H 99 H 102 H Blood Pressure O2 Sat by Pulse 99 98 100 Oximetry 09/21/20 09/21/20 09/21/20 21:15 21:18 21:23 Temperature Pulse Rate 92 H 96 H 99 H Blood Pressure 107/66 O2 Sat by Pulse 99 99 Oximetry 09/21/20 09/21/20 09/21/20 21:28 21:33 21:38 Temperature Pulse Rate 95 H 96 H 94 H Blood Pressure O2 Sat by Pulse 99 99 99 Oximetry 09/21/20 09/21/20 09/21/20 21:48 21:53 21:58 Temperature Pulse Rate 98 H 87 93 H Blood Pressure O2 Sat by Pulse 99 99 99 Oximetry 09/21/20 09/21/20 09/21/20 22:03 22:08 22:13 Temperature Pulse Rate 97 H 91 H 92 H Blood Pressure O2 Sat by Pulse 99 99 99 Oximetry 09/21/20 09/21/20 09/21/20 22:14 22:18 22:23 Temperature Pulse Rate 93 H 90 95 H Blood Pressure 112/74 O2 Sat by Pulse 99 99 Oximetry 09/21/20 09/21/20 09/21/20 22:28 22:33 22:38 Temperature Pulse Rate 90 91 H 83 Blood Pressure O2 Sat by Pulse 99 100 100 Oximetry 09/21/20 09/21/20 09/21/20 22:43 22:48 22:53 Temperature Pulse Rate 88 94 H 84 Blood Pressure O2 Sat by Pulse 100 100 100 Oximetry 09/21/20 09/21/20 09/21/20 22:58 23:03 23:08 Temperature Pulse Rate 84 81 87 Blood Pressure O2 Sat by Pulse 99 100 99 Oximetry 09/21/20 09/21/20 09/21/20 23:13 23:20 23:25 Temperature Pulse Rate 94 H 86 Blood Pressure O2 Sat by Pulse 99 98 99 Oximetry 09/21/20 09/21/20 09/21/20 23:30 23:35 23:40 Temperature Pulse Rate 86 83 87 Blood Pressure O2 Sat by Pulse 99 99 99 Oximetry 09/21/20 09/21/20 09/21/20 23:45 23:50 23:55 Temperature Pulse Rate 83 85 79 Blood Pressure O2 Sat by Pulse 100 100 100 Oximetry 09/22/20 09/22/20 09/22/20 00:00 00:01 00:05 Temperature Pulse Rate 87 86 85 Blood Pressure 118/63 O2 Sat by Pulse 99 88 99 Oximetry 09/22/20 09/22/20 09/22/20 00:10 00:15 00:16 Temperature Pulse Rate 87 85 81 Blood Pressure 106/63 O2 Sat by Pulse 98 97 Oximetry 09/22/20 09/22/20 09/22/20 00:20 00:25 00:30 Temperature Pulse Rate 78 86 84 Blood Pressure O2 Sat by Pulse 99 99 98 Oximetry 09/22/20 09/22/20 09/22/20 00:40 00:45 00:50 Temperature Pulse Rate 86 83 86 Blood Pressure O2 Sat by Pulse 99 98 98 Oximetry 09/22/20 09/22/20 09/22/20 00:55 01:00 01:05 Temperature Pulse Rate 90 84 78 Blood Pressure O2 Sat by Pulse 98 99 99 Oximetry 09/22/20 09/22/20 09/22/20 01:09 01:10 01:15 Temperature 97.8 F Pulse Rate 86 93 H Blood Pressure 120/58 O2 Sat by Pulse 98 99 Oximetry 09/22/20 09/22/20 09/22/20 01:20 01:25 01:30 Temperature Pulse Rate 97 H 91 H 85 Blood Pressure O2 Sat by Pulse 97 99 99 Oximetry 09/22/20 09/22/20 09/22/20 01:35 01:43 01:48 Temperature Pulse Rate 91 H 93 H 76 Blood Pressure O2 Sat by Pulse 99 96 100 Oximetry 09/22/20 09/22/20 09/22/20 01:53 01:58 02:03 Temperature Pulse Rate 83 81 77 Blood Pressure O2 Sat by Pulse 99 100 100 Oximetry 09/22/20 09/22/20 09/22/20 02:08 02:13 02:15 Temperature Pulse Rate 77 84 72 Blood Pressure 126/79 O2 Sat by Pulse 99 99 Oximetry 09/22/20 09/22/20 09/22/20 02:18 02:23 02:28 Temperature Pulse Rate 79 102 H 94 H Blood Pressure O2 Sat by Pulse 99 99 97 Oximetry 09/22/20 09/22/20 09/22/20 02:33 02:41 02:46 Temperature Pulse Rate 83 55 L 87 Blood Pressure O2 Sat by Pulse 98 91 99 Oximetry 09/22/20 09/22/20 09/22/20 02:51 02:56 03:01 Temperature Pulse Rate 75 72 90 Blood Pressure O2 Sat by Pulse 100 99 100 Oximetry 09/22/20 09/22/20 09/22/20 03:06 03:09 03:14 Temperature Pulse Rate 88 86 84 Blood Pressure O2 Sat by Pulse 99 99 99 Oximetry 09/22/20 09/22/20 09/22/20 03:19 03:24 03:29 Temperature Pulse Rate 82 88 85 Blood Pressure O2 Sat by Pulse 99 99 98 Oximetry 09/22/20 09/22/20 09/22/20 03:34 03:39 03:44 Temperature Pulse Rate 85 78 88 Blood Pressure O2 Sat by Pulse 100 100 100 Oximetry 09/22/20 09/22/20 09/22/20 03:49 03:54 03:59 Temperature Pulse Rate 88 84 91 H Blood Pressure O2 Sat by Pulse 100 100 98 Oximetry 09/22/20 09/22/20 09/22/20 04:04 04:09 04:14 Temperature Pulse Rate 83 81 81 Blood Pressure O2 Sat by Pulse 100 99 99 Oximetry 09/22/20 09/22/20 09/22/20 04:19 04:24 04:29 Temperature Pulse Rate 79 79 82 Blood Pressure O2 Sat by Pulse 98 99 99 Oximetry 09/22/20 09/22/20 09/22/20 04:34 04:39 04:44 Temperature Pulse Rate 77 85 90 Blood Pressure O2 Sat by Pulse 98 98 97 Oximetry 09/22/20 09/22/20 09/22/20 04:49 04:57 05:02 Temperature Pulse Rate 82 99 H 92 H Blood Pressure O2 Sat by Pulse 99 86 99 Oximetry 09/22/20 09/22/20 09/22/20 05:05 05:07 05:12 Temperature Pulse Rate 83 81 88 Blood Pressure O2 Sat by Pulse 91 100 99 Oximetry 09/22/20 09/22/20 09/22/20 05:17 05:22 05:27 Temperature Pulse Rate 86 95 H 87 Blood Pressure O2 Sat by Pulse 100 99 99 Oximetry 09/22/20 09/22/20 09/22/20 05:32 05:37 05:42 Temperature Pulse Rate 86 88 79 Blood Pressure O2 Sat by Pulse 99 99 100 Oximetry 09/22/20 09/22/20 09/22/20 05:47 05:52 05:57 Temperature Pulse Rate 83 76 84 Blood Pressure O2 Sat by Pulse 99 98 99 Oximetry 09/22/20 09/22/20 09/22/20 06:02 06:04 06:07 Temperature Pulse Rate 78 80 Blood Pressure O2 Sat by Pulse 99 89 100 Oximetry 09/22/20 09/22/20 09/22/20 06:12 06:17 06:22 Temperature Pulse Rate 79 79 79 Blood Pressure O2 Sat by Pulse 99 100 99 Oximetry 09/22/20 09/22/20 09/22/20 06:27 06:32 06:37 Temperature Pulse Rate 77 80 78 Blood Pressure O2 Sat by Pulse 99 99 99 Oximetry 09/22/20 09/22/20 09/22/20 06:39 06:42 06:47 Temperature Pulse Rate 79 78 75 Blood Pressure 126/82 O2 Sat by Pulse 99 99 Oximetry 09/22/20 09/22/20 09/22/20 06:52 06:57 07:02 Temperature Pulse Rate 78 70 72 Blood Pressure O2 Sat by Pulse 99 99 100 Oximetry 09/22/20 09/22/20 09/22/20 07:07 07:12 07:17 Temperature Pulse Rate 75 77 75 Blood Pressure O2 Sat by Pulse 99 99 99 Oximetry 09/22/20 09/22/20 09/22/20 07:22 07:26 07:35 Temperature Pulse Rate 94 H 77 Blood Pressure 123/60 O2 Sat by Pulse 99 86 99 Oximetry 09/22/20 09/22/20 07:36 07:40 Temperature Pulse Rate 88 85 Blood Pressure 117/68 O2 Sat by Pulse 100 Oximetry - Exam Cardiovascular: Regular rate Lungs: Normal air movement Abdomen: Present: normal appearance, soft Vulva: both: normal Uterus: Present: normal FHR: auscultation normal, category 1 Uterine Contraction Monitor Mode: External Uterine Contraction Pattern: Irregular Extremities: normal Deep Tendon Reflex Grade: Normal +2 - Labs Labs: Abnormal Labs 09/19/20 23:00 MCHC 36 H
--- NOTE | 2020-09-22 13:04 | Progress Note ---
Assessment and Plan Pt now @ 20mU of pitocin, ctx noted q1-3m apart. pt does not feel most of them. Will reevaluate @ 4 with SVE. all questions addressed. - Patient Problems (1) 37 or more weeks gestation of Onset Date: ~09/19/20 Current Visit: Yes Status: Acute (2) Intrauterine growth restriction (IUGR) affecting care of mother, third trimester, single gestation Onset Date: ~09/19/20 Current Visit: Yes Status: Acute Plan to address problem: IOL in progress Subjective - Subjective Date of service: 09/22/20 Principal diagnosis: IOL for IUGR @ 37.4 weeks Patient reports: movement normal, contractions (pt rates pain 5/10 on some ctx), no loss of fluid, no vaginal bleeding Objective - Vital Signs Vital Signs: Vital Signs - 12hr 09/22/20 09/22/20 09/22/20 01:05 01:09 01:10 Temperature 97.8 F Pulse Rate 78 86 Respiratory Rate Blood Pressure Blood Pressure [Left] O2 Sat by Pulse 99 98 Oximetry 09/22/20 09/22/20 09/22/20 01:15 01:20 01:25 Temperature Pulse Rate 93 H 97 H 91 H Respiratory Rate Blood Pressure 120/58 Blood Pressure [Left] O2 Sat by Pulse 99 97 99 Oximetry 09/22/20 09/22/20 09/22/20 01:30 01:35 01:43 Temperature Pulse Rate 85 91 H 93 H Respiratory Rate Blood Pressure Blood Pressure [Left] O2 Sat by Pulse 99 99 96 Oximetry 09/22/20 09/22/20 09/22/20 01:48 01:53 01:58 Temperature Pulse Rate 76 83 81 Respiratory Rate Blood Pressure Blood Pressure [Left] O2 Sat by Pulse 100 99 100 Oximetry 09/22/20 09/22/20 09/22/20 02:03 02:08 02:13 Temperature Pulse Rate 77 77 84 Respiratory Rate Blood Pressure Blood Pressure [Left] O2 Sat by Pulse 100 99 99 Oximetry 09/22/20 09/22/20 09/22/20 02:15 02:18 02:23 Temperature Pulse Rate 72 79 102 H Respiratory Rate Blood Pressure 126/79 Blood Pressure [Left] O2 Sat by Pulse 99 99 Oximetry 09/22/20 09/22/20 09/22/20 02:28 02:33 02:41 Temperature Pulse Rate 94 H 83 55 L Respiratory Rate Blood Pressure Blood Pressure [Left] O2 Sat by Pulse 97 98 91 Oximetry 09/22/20 09/22/20 09/22/20 02:46 02:51 02:56 Temperature Pulse Rate 87 75 72 Respiratory Rate Blood Pressure Blood Pressure [Left] O2 Sat by Pulse 99 100 99 Oximetry 09/22/20 09/22/20 09/22/20 03:01 03:06 03:09 Temperature Pulse Rate 90 88 86 Respiratory Rate Blood Pressure Blood Pressure [Left] O2 Sat by Pulse 100 99 99 Oximetry 09/22/20 09/22/20 09/22/20 03:14 03:19 03:24 Temperature Pulse Rate 84 82 88 Respiratory Rate Blood Pressure Blood Pressure [Left] O2 Sat by Pulse 99 99 99 Oximetry 09/22/20 09/22/20 09/22/20 03:29 03:34 03:39 Temperature Pulse Rate 85 85 78 Respiratory Rate Blood Pressure Blood Pressure [Left] O2 Sat by Pulse 98 100 100 Oximetry 09/22/20 09/22/20 09/22/20 03:44 03:49 03:54 Temperature Pulse Rate 88 88 84 Respiratory Rate Blood Pressure Blood Pressure [Left] O2 Sat by Pulse 100 100 100 Oximetry 09/22/20 09/22/20 09/22/20 03:59 04:04 04:09 Temperature Pulse Rate 91 H 83 81 Respiratory Rate Blood Pressure Blood Pressure [Left] O2 Sat by Pulse 98 100 99 Oximetry 09/22/20 09/22/20 09/22/20 04:14 04:19 04:24 Temperature Pulse Rate 81 79 79 Respiratory Rate Blood Pressure Blood Pressure [Left] O2 Sat by Pulse 99 98 99 Oximetry 09/22/20 09/22/20 09/22/20 04:29 04:34 04:39 Temperature Pulse Rate 82 77 85 Respiratory Rate Blood Pressure Blood Pressure [Left] O2 Sat by Pulse 99 98 98 Oximetry 09/22/20 09/22/20 09/22/20 04:44 04:49 04:57 Temperature Pulse Rate 90 82 99 H Respiratory Rate Blood Pressure Blood Pressure [Left] O2 Sat by Pulse 97 99 86 Oximetry 09/22/20 09/22/20 09/22/20 05:02 05:05 05:07 Temperature Pulse Rate 92 H 83 81 Respiratory Rate Blood Pressure Blood Pressure [Left] O2 Sat by Pulse 99 91 100 Oximetry 09/22/20 09/22/20 09/22/20 05:12 05:17 05:22 Temperature Pulse Rate 88 86 95 H Respiratory Rate Blood Pressure Blood Pressure [Left] O2 Sat by Pulse 99 100 99 Oximetry 09/22/20 09/22/20 09/22/20 05:27 05:32 05:37 Temperature Pulse Rate 87 86 88 Respiratory Rate Blood Pressure Blood Pressure [Left] O2 Sat by Pulse 99 99 99 Oximetry 09/22/20 09/22/20 09/22/20 05:42 05:47 05:52 Temperature Pulse Rate 79 83 76 Respiratory Rate Blood Pressure Blood Pressure [Left] O2 Sat by Pulse 100 99 98 Oximetry 09/22/20 09/22/20 09/22/20 05:57 06:02 06:04 Temperature Pulse Rate 84 78 Respiratory Rate Blood Pressure Blood Pressure [Left] O2 Sat by Pulse 99 99 89 Oximetry 09/22/20 09/22/20 09/22/20 06:07 06:12 06:17 Temperature Pulse Rate 80 79 79 Respiratory Rate Blood Pressure Blood Pressure [Left] O2 Sat by Pulse 100 99 100 Oximetry 09/22/20 09/22/20 09/22/20 06:22 06:27 06:32 Temperature Pulse Rate 79 77 80 Respiratory Rate Blood Pressure Blood Pressure [Left] O2 Sat by Pulse 99 99 99 Oximetry 09/22/20 09/22/20 09/22/20 06:37 06:39 06:42 Temperature Pulse Rate 78 79 78 Respiratory Rate Blood Pressure 126/82 Blood Pressure [Left] O2 Sat by Pulse 99 99 Oximetry 09/22/20 09/22/20 09/22/20 06:47 06:52 06:57 Temperature Pulse Rate 75 78 70 Respiratory Rate Blood Pressure Blood Pressure [Left] O2 Sat by Pulse 99 99 99 Oximetry 09/22/20 09/22/20 09/22/20 07:02 07:07 07:12 Temperature Pulse Rate 72 75 77 Respiratory Rate Blood Pressure Blood Pressure [Left] O2 Sat by Pulse 100 99 99 Oximetry 09/22/20 09/22/20 09/22/20 07:17 07:22 07:26 Temperature Pulse Rate 75 94 H Respiratory Rate Blood Pressure Blood Pressure [Left] O2 Sat by Pulse 99 99 86 Oximetry 09/22/20 09/22/20 09/22/20 07:35 07:36 07:40 Temperature Pulse Rate 77 88 85 Respiratory Rate Blood Pressure 123/60 117/68 Blood Pressure [Left] O2 Sat by Pulse 99 100 Oximetry 09/22/20 09/22/20 09/22/20 07:45 07:50 07:55 Temperature Pulse Rate 83 89 86 Respiratory Rate Blood Pressure Blood Pressure [Left] O2 Sat by Pulse 99 99 98 Oximetry 09/22/20 09/22/20 09/22/20 08:00 08:05 08:10 Temperature 98.2 F Pulse Rate 86 88 84 Respiratory 16 Rate Blood Pressure Blood Pressure 117/68 [Left] O2 Sat by Pulse 100 99 99 Oximetry 09/22/20 09/22/20 09/22/20 08:15 08:20 08:25 Temperature Pulse Rate 91 H 86 86 Respiratory Rate Blood Pressure Blood Pressure [Left] O2 Sat by Pulse 98 98 98 Oximetry 09/22/20 09/22/20 09/22/20 08:30 08:35 08:40 Temperature Pulse Rate 82 86 82 Respiratory Rate Blood Pressure Blood Pressure [Left] O2 Sat by Pulse 98 98 98 Oximetry 09/22/20 09/22/20 09/22/20 08:44 08:45 08:50 Temperature Pulse Rate 82 85 42 L Respiratory Rate Blood Pressure Blood Pressure [Left] O2 Sat by Pulse 91 97 79 L Oximetry 09/22/20 09/22/20 09/22/20 08:56 09:01 09:06 Temperature Pulse Rate 93 H 65 59 L Respiratory Rate Blood Pressure Blood Pressure [Left] O2 Sat by Pulse 97 82 L 83 L Oximetry 09/22/20 09/22/20 09/22/20 09:11 09:16 09:21 Temperature Pulse Rate 70 47 L 46 L Respiratory Rate Blood Pressure Blood Pressure [Left] O2 Sat by Pulse 82 L 82 L 82 L Oximetry 09/22/20 09/22/20 09/22/20 09:26 09:32 10:14 Temperature Pulse Rate 74 74 Respiratory Rate Blood Pressure Blood Pressure [Left] O2 Sat by Pulse 82 L 91 87 Oximetry 09/22/20 09/22/20 09/22/20 10:16 10:21 10:26 Temperature Pulse Rate 95 H 97 H 94 H Respiratory Rate Blood Pressure Blood Pressure [Left] O2 Sat by Pulse 80 L 98 98 Oximetry 09/22/20 09/22/20 09/22/20 10:31 10:36 10:41 Temperature Pulse Rate 99 H 87 88 Respiratory Rate Blood Pressure Blood Pressure [Left] O2 Sat by Pulse 98 98 99 Oximetry 09/22/20 09/22/20 09/22/20 10:46 10:51 10:56 Temperature Pulse Rate 85 83 80 Respiratory Rate Blood Pressure Blood Pressure [Left] O2 Sat by Pulse 98 98 98 Oximetry 09/22/20 09/22/20 09/22/20 11:01 11:06 11:12 Temperature Pulse Rate 85 92 H 94 H Respiratory Rate Blood Pressure Blood Pressure [Left] O2 Sat by Pulse 99 98 99 Oximetry 09/22/20 09/22/20 09/22/20 11:17 11:22 11:27 Temperature Pulse Rate 85 88 87 Respiratory Rate Blood Pressure Blood Pressure [Left] O2 Sat by Pulse 99 98 99 Oximetry 09/22/20 09/22/20 09/22/20 11:32 11:37 11:42 Temperature Pulse Rate 84 88 81 Respiratory Rate Blood Pressure Blood Pressure [Left] O2 Sat by Pulse 98 98 99 Oximetry 09/22/20 09/22/20 09/22/20 11:47 11:52 11:57 Temperature Pulse Rate 89 99 H 90 Respiratory Rate Blood Pressure Blood Pressure [Left] O2 Sat by Pulse 99 98 99 Oximetry 09/22/20 09/22/20 09/22/20 12:02 12:07 12:12 Temperature Pulse Rate 95 H 97 H 102 H Respiratory Rate Blood Pressure Blood Pressure [Left] O2 Sat by Pulse 99 99 98 Oximetry 09/22/20 09/22/20 09/22/20 12:17 12:22 12:27 Temperature Pulse Rate 101 H 103 H 98 H Respiratory Rate Blood Pressure Blood Pressure [Left] O2 Sat by Pulse 100 99 100 Oximetry 09/22/20 09/22/20 09/22/20 12:32 12:41 12:42 Temperature Pulse Rate 99 H 95 H 93 H Respiratory Rate Blood Pressure 121/73 Blood Pressure [Left] O2 Sat by Pulse 99 100 Oximetry 09/22/20 09/22/20 09/22/20 12:46 12:49 12:51 Temperature 98.1 F Pulse Rate 92 H 87 91 H Respiratory 16 Rate Blood Pressure Blood Pressure 121/73 [Left] O2 Sat by Pulse 100 98 Oximetry 09/22/20 09/22/20 12:56 13:01 Temperature Pulse Rate 90 100 H Respiratory Rate Blood Pressure Blood Pressure [Left] O2 Sat by Pulse 99 99 Oximetry - Exam Breasts: normal Cardiovascular: Regular rate Lungs: Clear to auscultation, Normal air movement Abdomen: Present: normal appearance, soft, normal bowel sounds Vulva: both: normal Uterus: Present: normal, fundal height above umbilicus FHR: auscultation normal, category 1 Uterine Contraction Monitor Mode: External Uterine Contraction Pattern: Regular Uterine Tone Measurement Phase: Contraction Uterine Contraction Intensity: Mild Extremities: normal Deep Tendon Reflex Grade: Normal +2 - Labs Labs: Abnormal Labs 09/19/20 23:00 MCHC 36 H
--- NOTE | 2020-09-22 15:57 | Progress Note ---
Assessment and Plan received call from Anh MARIANO that patient had prolonged decelerations associated with tachysystole. Pitocin off and position changed, fht responded and is now Cat 1. SVE done, midline but thick. Advised pt and s/o on options, advised she is a good candidate for a cervical ripening balloon. Pt verbalizes understanding, agrees to placement of balloon. Will allow patient to have light meal and then will place @ approx 1730. - Patient Problems (1) 37 or more weeks gestation of Onset Date: ~09/19/20 Current Visit: Yes Status: Acute (2) Intrauterine growth restriction (IUGR) affecting care of mother, third trimester, single gestation Onset Date: ~09/19/20 Current Visit: Yes Status: Acute Subjective - Subjective Date of service: 09/22/20 Principal diagnosis: IOL for IUGR @ 37.4 weeks Patient reports: movement normal, contractions (pt rates pain 5/10 on some ctx), no loss of fluid, no vaginal bleeding Objective - Vital Signs Vital Signs: Vital Signs - 12hr 09/22/20 09/22/20 09/22/20 03:54 03:59 04:04 Temperature Pulse Rate 84 91 H 83 Respiratory Rate Blood Pressure Blood Pressure [Left] O2 Sat by Pulse 100 98 100 Oximetry 09/22/20 09/22/20 09/22/20 04:09 04:14 04:19 Temperature Pulse Rate 81 81 79 Respiratory Rate Blood Pressure Blood Pressure [Left] O2 Sat by Pulse 99 99 98 Oximetry 09/22/20 09/22/20 09/22/20 04:24 04:29 04:34 Temperature Pulse Rate 79 82 77 Respiratory Rate Blood Pressure Blood Pressure [Left] O2 Sat by Pulse 99 99 98 Oximetry 09/22/20 09/22/20 09/22/20 04:39 04:44 04:49 Temperature Pulse Rate 85 90 82 Respiratory Rate Blood Pressure Blood Pressure [Left] O2 Sat by Pulse 98 97 99 Oximetry 09/22/20 09/22/20 09/22/20 04:57 05:02 05:05 Temperature Pulse Rate 99 H 92 H 83 Respiratory Rate Blood Pressure Blood Pressure [Left] O2 Sat by Pulse 86 99 91 Oximetry 09/22/20 09/22/20 09/22/20 05:07 05:12 05:17 Temperature Pulse Rate 81 88 86 Respiratory Rate Blood Pressure Blood Pressure [Left] O2 Sat by Pulse 100 99 100 Oximetry 09/22/20 09/22/20 09/22/20 05:22 05:27 05:32 Temperature Pulse Rate 95 H 87 86 Respiratory Rate Blood Pressure Blood Pressure [Left] O2 Sat by Pulse 99 99 99 Oximetry 09/22/20 09/22/20 09/22/20 05:37 05:42 05:47 Temperature Pulse Rate 88 79 83 Respiratory Rate Blood Pressure Blood Pressure [Left] O2 Sat by Pulse 99 100 99 Oximetry 09/22/20 09/22/20 09/22/20 05:52 05:57 06:02 Temperature Pulse Rate 76 84 78 Respiratory Rate Blood Pressure Blood Pressure [Left] O2 Sat by Pulse 98 99 99 Oximetry 09/22/20 09/22/20 09/22/20 06:04 06:07 06:12 Temperature Pulse Rate 80 79 Respiratory Rate Blood Pressure Blood Pressure [Left] O2 Sat by Pulse 89 100 99 Oximetry 09/22/20 09/22/20 09/22/20 06:17 06:22 06:27 Temperature Pulse Rate 79 79 77 Respiratory Rate Blood Pressure Blood Pressure [Left] O2 Sat by Pulse 100 99 99 Oximetry 09/22/20 09/22/20 09/22/20 06:32 06:37 06:39 Temperature Pulse Rate 80 78 79 Respiratory Rate Blood Pressure 126/82 Blood Pressure [Left] O2 Sat by Pulse 99 99 Oximetry 09/22/20 09/22/20 09/22/20 06:42 06:47 06:52 Temperature Pulse Rate 78 75 78 Respiratory Rate Blood Pressure Blood Pressure [Left] O2 Sat by Pulse 99 99 99 Oximetry 09/22/20 09/22/20 09/22/20 06:57 07:02 07:07 Temperature Pulse Rate 70 72 75 Respiratory Rate Blood Pressure Blood Pressure [Left] O2 Sat by Pulse 99 100 99 Oximetry 09/22/20 09/22/20 09/22/20 07:12 07:17 07:22 Temperature Pulse Rate 77 75 94 H Respiratory Rate Blood Pressure Blood Pressure [Left] O2 Sat by Pulse 99 99 99 Oximetry 09/22/20 09/22/20 09/22/20 07:26 07:35 07:36 Temperature Pulse Rate 77 88 Respiratory Rate Blood Pressure 123/60 117/68 Blood Pressure [Left] O2 Sat by Pulse 86 99 Oximetry 09/22/20 09/22/20 09/22/20 07:40 07:45 07:50 Temperature Pulse Rate 85 83 89 Respiratory Rate Blood Pressure Blood Pressure [Left] O2 Sat by Pulse 100 99 99 Oximetry 09/22/20 09/22/20 09/22/20 07:55 08:00 08:05 Temperature 98.2 F Pulse Rate 86 86 88 Respiratory 16 Rate Blood Pressure Blood Pressure 117/68 [Left] O2 Sat by Pulse 98 100 99 Oximetry 09/22/20 09/22/20 09/22/20 08:10 08:15 08:20 Temperature Pulse Rate 84 91 H 86 Respiratory Rate Blood Pressure Blood Pressure [Left] O2 Sat by Pulse 99 98 98 Oximetry 09/22/20 09/22/20 09/22/20 08:25 08:30 08:35 Temperature Pulse Rate 86 82 86 Respiratory Rate Blood Pressure Blood Pressure [Left] O2 Sat by Pulse 98 98 98 Oximetry 09/22/20 09/22/20 09/22/20 08:40 08:44 08:45 Temperature Pulse Rate 82 82 85 Respiratory Rate Blood Pressure Blood Pressure [Left] O2 Sat by Pulse 98 91 97 Oximetry 09/22/20 09/22/20 09/22/20 08:50 08:56 09:01 Temperature Pulse Rate 42 L 93 H 65 Respiratory Rate Blood Pressure Blood Pressure [Left] O2 Sat by Pulse 79 L 97 82 L Oximetry 09/22/20 09/22/20 09/22/20 09:06 09:11 09:16 Temperature Pulse Rate 59 L 70 47 L Respiratory Rate Blood Pressure Blood Pressure [Left] O2 Sat by Pulse 83 L 82 L 82 L Oximetry 09/22/20 09/22/20 09/22/20 09:21 09:26 09:32 Temperature Pulse Rate 46 L 74 Respiratory Rate Blood Pressure Blood Pressure [Left] O2 Sat by Pulse 82 L 82 L 91 Oximetry 09/22/20 09/22/20 09/22/20 10:14 10:16 10:21 Temperature Pulse Rate 74 95 H 97 H Respiratory Rate Blood Pressure Blood Pressure [Left] O2 Sat by Pulse 87 80 L 98 Oximetry 09/22/20 09/22/20 09/22/20 10:26 10:31 10:36 Temperature Pulse Rate 94 H 99 H 87 Respiratory Rate Blood Pressure Blood Pressure [Left] O2 Sat by Pulse 98 98 98 Oximetry 09/22/20 09/22/20 09/22/20 10:41 10:46 10:51 Temperature Pulse Rate 88 85 83 Respiratory Rate Blood Pressure Blood Pressure [Left] O2 Sat by Pulse 99 98 98 Oximetry 09/22/20 09/22/20 09/22/20 10:56 11:01 11:06 Temperature Pulse Rate 80 85 92 H Respiratory Rate Blood Pressure Blood Pressure [Left] O2 Sat by Pulse 98 99 98 Oximetry 09/22/20 09/22/20 09/22/20 11:12 11:17 11:22 Temperature Pulse Rate 94 H 85 88 Respiratory Rate Blood Pressure Blood Pressure [Left] O2 Sat by Pulse 99 99 98 Oximetry 09/22/20 09/22/20 09/22/20 11:27 11:32 11:37 Temperature Pulse Rate 87 84 88 Respiratory Rate Blood Pressure Blood Pressure [Left] O2 Sat by Pulse 99 98 98 Oximetry 09/22/20 09/22/20 09/22/20 11:42 11:47 11:52 Temperature Pulse Rate 81 89 99 H Respiratory Rate Blood Pressure Blood Pressure [Left] O2 Sat by Pulse 99 99 98 Oximetry 09/22/20 09/22/20 09/22/20 11:57 12:02 12:07 Temperature Pulse Rate 90 95 H 97 H Respiratory Rate Blood Pressure Blood Pressure [Left] O2 Sat by Pulse 99 99 99 Oximetry 09/22/20 09/22/20 09/22/20 12:12 12:17 12:22 Temperature Pulse Rate 102 H 101 H 103 H Respiratory Rate Blood Pressure Blood Pressure [Left] O2 Sat by Pulse 98 100 99 Oximetry 09/22/20 09/22/20 09/22/20 12:27 12:32 12:41 Temperature Pulse Rate 98 H 99 H 95 H Respiratory Rate Blood Pressure Blood Pressure [Left] O2 Sat by Pulse 100 99 100 Oximetry 09/22/20 09/22/20 09/22/20 12:42 12:46 12:49 Temperature 98.1 F Pulse Rate 93 H 92 H 87 Respiratory 16 Rate Blood Pressure 121/73 Blood Pressure 121/73 [Left] O2 Sat by Pulse 100 Oximetry 09/22/20 09/22/20 09/22/20 12:51 12:56 13:01 Temperature Pulse Rate 91 H 90 100 H Respiratory Rate Blood Pressure Blood Pressure [Left] O2 Sat by Pulse 98 99 99 Oximetry 09/22/20 09/22/20 09/22/20 13:06 13:11 13:16 Temperature Pulse Rate 97 H 97 H 98 H Respiratory Rate Blood Pressure Blood Pressure [Left] O2 Sat by Pulse 99 99 99 Oximetry 09/22/20 09/22/20 09/22/20 13:21 13:26 13:31 Temperature Pulse Rate 98 H 95 H 82 Respiratory Rate Blood Pressure Blood Pressure [Left] O2 Sat by Pulse 99 100 99 Oximetry 09/22/20 09/22/20 09/22/20 13:36 13:50 13:55 Temperature Pulse Rate 91 H 91 H 85 Respiratory Rate Blood Pressure Blood Pressure [Left] O2 Sat by Pulse 99 99 99 Oximetry 09/22/20 09/22/20 09/22/20 14:00 14:05 14:10 Temperature Pulse Rate 87 85 89 Respiratory Rate Blood Pressure Blood Pressure [Left] O2 Sat by Pulse 99 99 99 Oximetry 09/22/20 09/22/20 09/22/20 14:15 14:20 14:25 Temperature Pulse Rate 94 H 90 95 H Respiratory Rate Blood Pressure Blood Pressure [Left] O2 Sat by Pulse 100 100 100 Oximetry 09/22/20 09/22/20 09/22/20 14:30 14:35 14:40 Temperature Pulse Rate 80 85 80 Respiratory Rate Blood Pressure Blood Pressure [Left] O2 Sat by Pulse 100 99 99 Oximetry 09/22/20 09/22/20 09/22/20 14:45 14:50 14:55 Temperature Pulse Rate 91 H 91 H 88 Respiratory Rate Blood Pressure Blood Pressure [Left] O2 Sat by Pulse 100 100 100 Oximetry 09/22/20 09/22/20 09/22/20 15:00 15:05 15:12 Temperature Pulse Rate 97 H 101 H 84 Respiratory Rate Blood Pressure Blood Pressure [Left] O2 Sat by Pulse 100 100 100 Oximetry 09/22/20 09/22/20 09/22/20 15:17 15:22 15:27 Temperature Pulse Rate 86 86 102 H Respiratory Rate Blood Pressure Blood Pressure [Left] O2 Sat by Pulse 100 100 98 Oximetry 09/22/20 09/22/20 09/22/20 15:32 15:37 15:42 Temperature Pulse Rate 93 H 85 98 H Respiratory Rate Blood Pressure Blood Pressure [Left] O2 Sat by Pulse 99 99 100 Oximetry 09/22/20 15:47 Temperature Pulse Rate 94 H Respiratory Rate Blood Pressure Blood Pressure [Left] O2 Sat by Pulse 100 Oximetry - Exam Cardiovascular: Regular rate Lungs: Normal air movement Abdomen: Present: normal appearance, soft Vulva: both: normal FHR: category 2 Uterine Contraction Monitor Mode: External Cervical Dilatation: 1 Cervical Effacement Percentage: 40 station: -2 - Labs Labs: Abnormal Labs 09/19/20 23:00 MCHC 36 H
--- NOTE | 2020-09-22 17:34 | Event Note ---
Date: 09/22/20 Cooks cath placed without difficulty, intra-cervical balloon inflated to 80mls of sterile saline and external balloon inflated to 60mls of sterile saline. patient tolerated procedure. [facility] CAT 1.
[2020-09-22] MEDS: OXYTOCIN DRIP 30 UNITS/500 ML BAG IV SCH (18:21)
[2020-09-22] MEDS: LACTATED RINGERS 1,000 ML IV SCH (18:22)
[2020-09-22] MEDS: fentaNYL 100 MCG/2 ML INJ IV PRN (18:22)
[2020-09-22] MEDS ORDERED: ZOLPIDEM 5 MG TAB PO ONE (22:15)
--- NOTE | 2020-09-23 09:05 | Progress Note ---
<SHYANNE ZAMORANO - Last Filed: 09/23/20 09:06> Assessment and Plan Pt eating breakfast and ambulating in room without complaints. Pt reports desire for shower and am care. Nancy MARIANO to bedside with linens and bed sheets changed. Pt declines vaginal exam at this time. Risks, recommendations, and options for IOL discussed in length with pt. Pt reports desire for Pitocin IV and wireless monitoring with ambulation today. Dr. Barbosa made aware and POC discussed. - Patient Problems (1) Encounter for induction of labor Current Visit: Yes Status: Acute (2) 37 or more weeks gestation of Onset Date: ~09/19/20 Current Visit: Yes Status: Acute (3) Intrauterine growth restriction (IUGR) affecting care of mother, third trimester, single gestation Onset Date: ~09/19/20 Current Visit: Yes Status: Acute Subjective - Subjective Date of service: 09/23/20 Principal diagnosis: IOL for IUGR @ 37.5 weeks Patient reports: movement normal, no new complaints, no loss of fluid, no vaginal bleeding, no contractions Objective - Vital Signs Vital Signs: Vital Signs - 12hr 09/22/20 09/22/20 09/22/20 21:09 21:14 21:19 Temperature Pulse Rate 88 83 80 Respiratory Rate Blood Pressure Blood Pressure [Left] O2 Sat by Pulse 99 98 98 Oximetry 09/22/20 09/22/20 09/22/20 21:24 21:29 21:34 Temperature Pulse Rate 84 81 82 Respiratory Rate Blood Pressure Blood Pressure [Left] O2 Sat by Pulse 98 99 99 Oximetry 09/22/20 09/22/20 09/22/20 21:39 21:54 21:59 Temperature Pulse Rate 88 98 H 78 Respiratory Rate Blood Pressure Blood Pressure [Left] O2 Sat by Pulse 100 100 100 Oximetry 09/22/20 09/22/20 09/22/20 22:04 22:09 22:14 Temperature Pulse Rate 86 95 H 85 Respiratory Rate Blood Pressure Blood Pressure [Left] O2 Sat by Pulse 99 100 100 Oximetry 09/22/20 09/22/20 09/22/20 22:19 22:24 22:29 Temperature Pulse Rate 92 H 86 83 Respiratory Rate Blood Pressure Blood Pressure [Left] O2 Sat by Pulse 99 100 99 Oximetry 09/22/20 09/22/20 09/22/20 22:34 22:39 22:44 Temperature Pulse Rate 91 H 98 H 90 Respiratory Rate Blood Pressure Blood Pressure [Left] O2 Sat by Pulse 100 100 99 Oximetry 09/22/20 09/22/20 09/22/20 22:49 22:54 22:59 Temperature Pulse Rate 88 86 83 Respiratory Rate Blood Pressure Blood Pressure [Left] O2 Sat by Pulse 99 100 99 Oximetry 09/22/20 09/22/20 09/22/20 23:04 23:09 23:14 Temperature Pulse Rate 79 83 84 Respiratory Rate Blood Pressure Blood Pressure [Left] O2 Sat by Pulse 99 98 99 Oximetry 09/22/20 09/22/20 09/22/20 23:19 23:24 23:29 Temperature Pulse Rate 80 79 78 Respiratory Rate Blood Pressure Blood Pressure [Left] O2 Sat by Pulse 98 98 98 Oximetry 09/22/20 09/22/20 09/22/20 23:34 23:39 23:44 Temperature Pulse Rate 81 76 80 Respiratory Rate Blood Pressure Blood Pressure [Left] O2 Sat by Pulse 98 99 99 Oximetry 09/22/20 09/22/20 09/22/20 23:49 23:54 23:59 Temperature Pulse Rate 83 95 H 86 Respiratory Rate Blood Pressure Blood Pressure [Left] O2 Sat by Pulse 99 97 100 Oximetry 09/23/20 09/23/20 09/23/20 00:00 00:04 00:09 Temperature 98.3 F Pulse Rate 83 98 H Respiratory 18 Rate Blood Pressure Blood Pressure [Left] O2 Sat by Pulse 100 99 Oximetry 09/23/20 09/23/20 09/23/20 00:24 00:28 00:29 Temperature Pulse Rate 95 H 80 80 Respiratory Rate Blood Pressure 122/74 Blood Pressure [Left] O2 Sat by Pulse 100 100 Oximetry 09/23/20 09/23/20 09/23/20 00:34 00:39 00:44 Temperature Pulse Rate 75 73 77 Respiratory Rate Blood Pressure Blood Pressure [Left] O2 Sat by Pulse 99 100 100 Oximetry 09/23/20 09/23/20 09/23/20 00:49 00:54 00:59 Temperature Pulse Rate 75 82 89 Respiratory Rate Blood Pressure Blood Pressure [Left] O2 Sat by Pulse 100 99 100 Oximetry 09/23/20 09/23/20 09/23/20 01:04 01:09 01:14 Temperature Pulse Rate 73 99 H 91 H Respiratory Rate Blood Pressure Blood Pressure [Left] O2 Sat by Pulse 99 98 100 Oximetry 09/23/20 09/23/20 09/23/20 01:19 01:24 01:29 Temperature Pulse Rate 88 100 H 85 Respiratory Rate Blood Pressure Blood Pressure [Left] O2 Sat by Pulse 100 100 100 Oximetry 09/23/20 09/23/20 09/23/20 01:34 01:39 01:44 Temperature Pulse Rate 81 83 85 Respiratory Rate Blood Pressure Blood Pressure [Left] O2 Sat by Pulse 100 99 100 Oximetry 09/23/20 09/23/20 09/23/20 01:49 01:54 01:59 Temperature Pulse Rate 101 H 86 83 Respiratory Rate Blood Pressure Blood Pressure [Left] O2 Sat by Pulse 100 100 100 Oximetry 09/23/20 09/23/20 09/23/20 02:04 02:09 02:14 Temperature Pulse Rate 92 H 78 78 Respiratory Rate Blood Pressure Blood Pressure [Left] O2 Sat by Pulse 99 97 97 Oximetry 09/23/20 09/23/20 09/23/20 02:19 02:24 02:29 Temperature Pulse Rate 102 H 89 84 Respiratory Rate Blood Pressure Blood Pressure [Left] O2 Sat by Pulse 99 99 100 Oximetry 09/23/20 09/23/20 09/23/20 02:41 02:46 02:51 Temperature Pulse Rate 99 H 90 91 H Respiratory Rate Blood Pressure Blood Pressure [Left] O2 Sat by Pulse 100 99 100 Oximetry 09/23/20 09/23/20 09/23/20 02:56 03:01 03:06 Temperature Pulse Rate 90 89 91 H Respiratory Rate Blood Pressure Blood Pressure [Left] O2 Sat by Pulse 100 100 100 Oximetry 09/23/20 09/23/20 09/23/20 03:11 03:16 03:21 Temperature Pulse Rate 97 H 91 H 90 Respiratory Rate Blood Pressure Blood Pressure [Left] O2 Sat by Pulse 100 100 100 Oximetry 09/23/20 09/23/20 09/23/20 03:26 03:31 03:36 Temperature Pulse Rate 97 H 92 H 107 H Respiratory Rate Blood Pressure Blood Pressure [Left] O2 Sat by Pulse 100 99 100 Oximetry 09/23/20 09/23/20 09/23/20 03:41 03:46 03:51 Temperature Pulse Rate 98 H 96 H 91 H Respiratory Rate Blood Pressure Blood Pressure [Left] O2 Sat by Pulse 100 100 100 Oximetry 09/23/20 09/23/20 09/23/20 04:00 04:05 04:06 Temperature 98.2 F Pulse Rate 98 H 86 Respiratory 18 Rate Blood Pressure 122/70 Blood Pressure [Left] O2 Sat by Pulse 100 Oximetry 09/23/20 09/23/20 09/23/20 04:10 04:15 04:20 Temperature Pulse Rate 84 90 81 Respiratory Rate Blood Pressure Blood Pressure [Left] O2 Sat by Pulse 99 100 99 Oximetry 09/23/20 09/23/20 09/23/20 04:25 04:30 04:35 Temperature Pulse Rate 83 85 82 Respiratory Rate Blood Pressure Blood Pressure [Left] O2 Sat by Pulse 99 99 99 Oximetry 09/23/20 09/23/20 09/23/20 04:45 04:50 04:55 Temperature Pulse Rate 109 H 88 89 Respiratory Rate Blood Pressure Blood Pressure [Left] O2 Sat by Pulse 99 98 98 Oximetry 09/23/20 09/23/20 09/23/20 05:00 05:05 05:10 Temperature Pulse Rate 87 89 87 Respiratory Rate Blood Pressure Blood Pressure [Left] O2 Sat by Pulse 98 98 98 Oximetry 09/23/20 09/23/20 09/23/20 05:15 05:20 05:25 Temperature Pulse Rate 82 87 84 Respiratory Rate Blood Pressure Blood Pressure [Left] O2 Sat by Pulse 97 97 97 Oximetry 09/23/20 09/23/20 09/23/20 05:30 05:35 05:40 Temperature Pulse Rate 86 75 84 Respiratory Rate Blood Pressure Blood Pressure [Left] O2 Sat by Pulse 98 96 100 Oximetry 09/23/20 09/23/20 09/23/20 05:43 07:56 07:57 Temperature Pulse Rate 64 96 H 77 Respiratory Rate Blood Pressure 105/52 Blood Pressure [Left] O2 Sat by Pulse 81 L 98 Oximetry 09/23/20 09/23/20 09/23/20 08:02 08:05 08:06 Temperature 97.7 F Pulse Rate 96 H 69 Respiratory 12 Rate Blood Pressure Blood Pressure 105/52 [Left] O2 Sat by Pulse 99 80 L Oximetry 09/23/20 08:07 Temperature Pulse Rate 69 Respiratory Rate Blood Pressure Blood Pressure [Left] O2 Sat by Pulse 89 Oximetry - Exam Breasts: deferred Cardiovascular: Regular rate Lungs: Normal air movement Abdomen: Present: normal appearance, soft Uterus: Present: normal. Absent: tenderness FHR: auscultation normal, category 1 (before; now off monitor for am care) Uterine Contraction Monitor Mode: Palpation Uterine Contraction Pattern: Absent Uterine Tone Measurement Phase: Resting Extremities: normal - Labs Labs: Abnormal Labs 09/19/20 23:00 MCHC 36 H <SIDDHARTH BARBOSA - Last Filed: 09/23/20 09:44> Assessment and Plan Attempted to evaluate patient earlier however she wasin the shower - Patient Problems (1) 37 or more weeks gestation of Onset Date: ~09/19/20 Current Visit: Yes Status: Acute (2) Intrauterine growth restriction (IUGR) affecting care of mother, third trimester, single gestation Onset Date: ~09/19/20 Current Visit: Yes Status: Acute Objective - Vital Signs Vital Signs: Vital Signs - 12hr 09/22/20 09/22/20 09/22/20 21:54 21:59 22:04 Temperature Pulse Rate 98 H 78 86 Respiratory Rate Blood Pressure Blood Pressure [Left] O2 Sat by Pulse 100 100 99 Oximetry 09/22/20 09/22/20 09/22/20 22:09 22:14 22:19 Temperature Pulse Rate 95 H 85 92 H Respiratory Rate Blood Pressure Blood Pressure [Left] O2 Sat by Pulse 100 100 99 Oximetry 09/22/20 09/22/20 09/22/20 22:24 22:29 22:34 Temperature Pulse Rate 86 83 91 H Respiratory Rate Blood Pressure Blood Pressure [Left] O2 Sat by Pulse 100 99 100 Oximetry 09/22/20 09/22/20 09/22/20 22:39 22:44 22:49 Temperature Pulse Rate 98 H 90 88 Respiratory Rate Blood Pressure Blood Pressure [Left] O2 Sat by Pulse 100 99 99 Oximetry 09/22/20 09/22/20 09/22/20 22:54 22:59 23:04 Temperature Pulse Rate 86 83 79 Respiratory Rate Blood Pressure Blood Pressure [Left] O2 Sat by Pulse 100 99 99 Oximetry 09/22/20 09/22/20 09/22/20 23:09 23:14 23:19 Temperature Pulse Rate 83 84 80 Respiratory Rate Blood Pressure Blood Pressure [Left] O2 Sat by Pulse 98 99 98 Oximetry 09/22/20 09/22/2021 23:24 23:29 23:34 Temperature Pulse Rate 79 78 81 Respiratory Rate Blood Pressure Blood Pressure [Left] O2 Sat by Pulse 98 98 98 Oximetry 09/22/20 09/22/20 09/22/20 23:39 23:44 23:49 Temperature Pulse Rate 76 80 83 Respiratory Rate Blood Pressure Blood Pressure [Left] O2 Sat by Pulse 99 99 99 Oximetry 09/22/20 09/22/20 09/23/20 23:54 23:59 00:00 Temperature 98.3 F Pulse Rate 95 H 86 Respiratory 18 Rate Blood Pressure Blood Pressure [Left] O2 Sat by Pulse 97 100 Oximetry 09/23/20 09/23/20 09/23/20 00:04 00:09 00:24 Temperature Pulse Rate 83 98 H 95 H Respiratory Rate Blood Pressure Blood Pressure [Left] O2 Sat by Pulse 100 99 100 Oximetry 09/23/20 09/23/20 09/23/20 00:28 00:29 00:34 Temperature Pulse Rate 80 80 75 Respiratory Rate Blood Pressure 122/74 Blood Pressure [Left] O2 Sat by Pulse 100 99 Oximetry 09/23/20 09/23/20 09/23/20 00:39 00:44 00:49 Temperature Pulse Rate 73 77 75 Respiratory Rate Blood Pressure Blood Pressure [Left] O2 Sat by Pulse 100 100 100 Oximetry 09/23/20 09/23/20 09/23/20 00:54 00:59 01:04 Temperature Pulse Rate 82 89 73 Respiratory Rate Blood Pressure Blood Pressure [Left] O2 Sat by Pulse 99 100 99 Oximetry 09/23/20 09/23/20 09/23/20 01:09 01:14 01:19 Temperature Pulse Rate 99 H 91 H 88 Respiratory Rate Blood Pressure Blood Pressure [Left] O2 Sat by Pulse 98 100 100 Oximetry 09/23/20 09/23/20 09/23/20 01:24 01:29 01:34 Temperature Pulse Rate 100 H 85 81 Respiratory Rate Blood Pressure Blood Pressure [Left] O2 Sat by Pulse 100 100 100 Oximetry 09/23/20 09/23/20 09/23/20 01:39 01:44 01:49 Temperature Pulse Rate 83 85 101 H Respiratory Rate Blood Pressure Blood Pressure [Left] O2 Sat by Pulse 99 100 100 Oximetry 09/23/20 09/23/20 09/23/20 01:54 01:59 02:04 Temperature Pulse Rate 86 83 92 H Respiratory Rate Blood Pressure Blood Pressure [Left] O2 Sat by Pulse 100 100 99 Oximetry 09/23/20 09/23/20 09/23/20 02:09 02:14 02:19 Temperature Pulse Rate 78 78 102 H Respiratory Rate Blood Pressure Blood Pressure [Left] O2 Sat by Pulse 97 97 99 Oximetry 09/23/20 09/23/20 09/23/20 02:24 02:29 02:41 Temperature Pulse Rate 89 84 99 H Respiratory Rate Blood Pressure Blood Pressure [Left] O2 Sat by Pulse 99 100 100 Oximetry 09/23/20 09/23/20 09/23/20 02:46 02:51 02:56 Temperature Pulse Rate 90 91 H 90 Respiratory Rate Blood Pressure Blood Pressure [Left] O2 Sat by Pulse 99 100 100 Oximetry 09/23/20 09/23/20 09/23/20 03:01 03:06 03:11 Temperature Pulse Rate 89 91 H 97 H Respiratory Rate Blood Pressure Blood Pressure [Left] O2 Sat by Pulse 100 100 100 Oximetry 09/23/20 09/23/20 09/23/20 03:16 03:21 03:26 Temperature Pulse Rate 91 H 90 97 H Respiratory Rate Blood Pressure Blood Pressure [Left] O2 Sat by Pulse 100 100 100 Oximetry 09/23/20 09/23/20 09/23/20 03:31 03:36 03:41 Temperature Pulse Rate 92 H 107 H 98 H Respiratory Rate Blood Pressure Blood Pressure [Left] O2 Sat by Pulse 99 100 100 Oximetry 09/23/20 09/23/20 09/23/20 03:46 03:51 04:00 Temperature 98.2 F Pulse Rate 96 H 91 H Respiratory 18 Rate Blood Pressure Blood Pressure [Left] O2 Sat by Pulse 100 100 Oximetry 09/23/20 09/23/20 09/23/20 04:05 04:06 04:10 Temperature Pulse Rate 98 H 86 84 Respiratory Rate Blood Pressure 122/70 Blood Pressure [Left] O2 Sat by Pulse 100 99 Oximetry 09/23/20 09/23/20 09/23/20 04:15 04:20 04:25 Temperature Pulse Rate 90 81 83 Respiratory Rate Blood Pressure Blood Pressure [Left] O2 Sat by Pulse 100 99 99 Oximetry 09/23/20 09/23/20 09/23/20 04:30 04:35 04:45 Temperature Pulse Rate 85 82 109 H Respiratory Rate Blood Pressure Blood Pressure [Left] O2 Sat by Pulse 99 99 99 Oximetry 09/23/20 09/23/20 09/23/20 04:50 04:55 05:00 Temperature Pulse Rate 88 89 87 Respiratory Rate Blood Pressure Blood Pressure [Left] O2 Sat by Pulse 98 98 98 Oximetry 09/23/20 09/23/20 09/23/20 05:05 05:10 05:15 Temperature Pulse Rate 89 87 82 Respiratory Rate Blood Pressure Blood Pressure [Left] O2 Sat by Pulse 98 98 97 Oximetry 09/23/20 09/23/20 09/23/20 05:20 05:25 05:30 Temperature Pulse Rate 87 84 86 Respiratory Rate Blood Pressure Blood Pressure [Left] O2 Sat by Pulse 97 97 98 Oximetry 09/23/20 09/23/20 09/23/20 05:35 05:40 05:43 Temperature Pulse Rate 75 84 64 Respiratory Rate Blood Pressure Blood Pressure [Left] O2 Sat by Pulse 96 100 81 L Oximetry 09/23/20 09/23/20 09/23/20 07:56 07:57 08:02 Temperature Pulse Rate 96 H 77 96 H Respiratory Rate Blood Pressure 105/52 Blood Pressure [Left] O2 Sat by Pulse 98 99 Oximetry 09/23/20 09/23/20 09/23/20 08:05 08:06 08:07 Temperature 97.7 F Pulse Rate 69 69 Respiratory 12 Rate Blood Pressure Blood Pressure 105/52 [Left] O2 Sat by Pulse 80 L 89 Oximetry 09/23/20 09/23/20 09/23/20 09:13 09:19 09:25 Temperature Pulse Rate 221 H 102 H 113 H Respiratory Rate Blood Pressure Blood Pressure [Left] O2 Sat by Pulse 87 77 L 78 L Oximetry 09/23/20 09/23/20 09/23/20 09:30 09:36 09:38 Temperature Pulse Rate 65 85 Respiratory Rate Blood Pressure Blood Pressure [Left] O2 Sat by Pulse 87 92 92 Oximetry - Labs Labs: Abnormal Labs 09/19/20 23:00 MCHC 36 H
[2020-09-23] MEDS: OXYTOCIN DRIP 30 UNITS/500 ML BAG IV SCH (10:39)
[2020-09-23] MEDS: LACTATED RINGERS 1,000 ML IV SCH (12:15)
--- NOTE | 2020-09-23 13:54 | Progress Note ---
Assessment and Plan IOL D#4 s/p Cervidil x2, Cytotec x2(oral and vaginal) Cook catheter last night with pitocin 2mu/min all night. Now on pitocin 2mu/min q30min. Options reviewed including but limited to, continue pitocin augmention dose; replaced Cook catheter now and continue pitocin or c/s delivery. Risks and benefits reviewed. She declines c/s at this time. She desires continuing with pitocin for now. She agrees to be reassessed at dinner time and possible Cook catheter placement with low dose pitocin over night. Questions were encouraged. She voiced understanding - Patient Problems (1) 37 or more weeks gestation of Onset Date: ~09/19/20 Current Visit: Yes Status: Acute (2) Intrauterine growth restriction (IUGR) affecting care of mother, third trimester, single gestation Onset Date: ~09/19/20 Current Visit: Yes Status: Acute Subjective - Subjective Date of service: 09/23/20 Principal diagnosis: IOL for IUGR @ 37.5 weeks Patient reports: new complaints, movement normal, contractions, no loss of fluid, no vaginal bleeding Objective - Vital Signs Vital Signs: Vital Signs - 12hr 09/23/20 09/23/20 09/23/20 01:49 01:54 01:59 Temperature Pulse Rate 101 H 86 83 Respiratory Rate Blood Pressure Blood Pressure [Left] O2 Sat by Pulse 100 100 100 Oximetry 09/23/20 09/23/20 09/23/20 02:04 02:09 02:14 Temperature Pulse Rate 92 H 78 78 Respiratory Rate Blood Pressure Blood Pressure [Left] O2 Sat by Pulse 99 97 97 Oximetry 09/23/20 09/23/20 09/23/20 02:19 02:24 02:29 Temperature Pulse Rate 102 H 89 84 Respiratory Rate Blood Pressure Blood Pressure [Left] O2 Sat by Pulse 99 99 100 Oximetry 09/23/20 09/23/20 09/23/20 02:41 02:46 02:51 Temperature Pulse Rate 99 H 90 91 H Respiratory Rate Blood Pressure Blood Pressure [Left] O2 Sat by Pulse 100 99 100 Oximetry 09/23/20 09/23/20 09/23/20 02:56 03:01 03:06 Temperature Pulse Rate 90 89 91 H Respiratory Rate Blood Pressure Blood Pressure [Left] O2 Sat by Pulse 100 100 100 Oximetry 06/09/23/20 09/23/20 03:11 03:16 03:21 Temperature Pulse Rate 97 H 91 H 90 Respiratory Rate Blood Pressure Blood Pressure [Left] O2 Sat by Pulse 100 100 100 Oximetry 09/23/20 09/23/20 09/23/20 03:26 03:31 03:36 Temperature Pulse Rate 97 H 92 H 107 H Respiratory Rate Blood Pressure Blood Pressure [Left] O2 Sat by Pulse 100 99 100 Oximetry 09/23/20 09/23/20 09/23/20 03:41 03:46 03:51 Temperature Pulse Rate 98 H 96 H 91 H Respiratory Rate Blood Pressure Blood Pressure [Left] O2 Sat by Pulse 100 100 100 Oximetry 09/23/20 09/23/20 09/23/20 04:00 04:05 04:06 Temperature 98.2 F Pulse Rate 98 H 86 Respiratory 18 Rate Blood Pressure 122/70 Blood Pressure [Left] O2 Sat by Pulse 100 Oximetry 09/23/20 09/23/20 09/23/20 04:10 04:15 04:20 Temperature Pulse Rate 84 90 81 Respiratory Rate Blood Pressure Blood Pressure [Left] O2 Sat by Pulse 99 100 99 Oximetry 09/23/20 09/23/20 09/23/20 04:25 04:30 04:35 Temperature Pulse Rate 83 85 82 Respiratory Rate Blood Pressure Blood Pressure [Left] O2 Sat by Pulse 99 99 99 Oximetry 09/23/20 09/23/20 09/23/20 04:45 04:50 04:55 Temperature Pulse Rate 109 H 88 89 Respiratory Rate Blood Pressure Blood Pressure [Left] O2 Sat by Pulse 99 98 98 Oximetry 09/23/20 09/23/20 09/23/20 05:00 05:05 05:10 Temperature Pulse Rate 87 89 87 Respiratory Rate Blood Pressure Blood Pressure [Left] O2 Sat by Pulse 98 98 98 Oximetry 09/23/20 09/23/20 09/23/20 05:15 05:20 05:25 Temperature Pulse Rate 82 87 84 Respiratory Rate Blood Pressure Blood Pressure [Left] O2 Sat by Pulse 97 97 97 Oximetry 09/23/20 09/23/20 09/23/20 05:30 05:35 05:40 Temperature Pulse Rate 86 75 84 Respiratory Rate Blood Pressure Blood Pressure [Left] O2 Sat by Pulse 98 96 100 Oximetry 09/23/20 09/23/20 09/23/20 05:43 07:56 07:57 Temperature Pulse Rate 64 96 H 77 Respiratory Rate Blood Pressure 105/52 Blood Pressure [Left] O2 Sat by Pulse 81 L 98 Oximetry 09/23/20 09/23/20 09/23/20 08:02 08:05 08:06 Temperature 97.7 F Pulse Rate 96 H 69 Respiratory 12 Rate Blood Pressure Blood Pressure 105/52 [Left] O2 Sat by Pulse 99 80 L Oximetry 09/23/20 09/23/20 09/23/20 08:07 09:13 09:19 Temperature Pulse Rate 69 221 H 102 H Respiratory Rate Blood Pressure Blood Pressure [Left] O2 Sat by Pulse 89 87 77 L Oximetry 09/23/20 09/23/20 09/23/20 09:25 09:30 09:36 Temperature Pulse Rate 113 H 65 Respiratory Rate Blood Pressure Blood Pressure [Left] O2 Sat by Pulse 78 L 87 92 Oximetry 09/23/20 09/23/20 09/23/20 09:38 09:41 09:43 Temperature Pulse Rate 85 78 Respiratory Rate Blood Pressure Blood Pressure [Left] O2 Sat by Pulse 92 58 L 96 Oximetry 09/23/20 09/23/20 09/23/20 09:53 11:56 11:58 Temperature 97.9 F 97.9 F Pulse Rate 92 H 91 H 90 Respiratory 12 Rate Blood Pressure 116/77 110/76 Blood Pressure 110/76 [Left] O2 Sat by Pulse Oximetry - Exam Breasts: deferred Cardiovascular: Regular rate Lungs: Normal air movement Abdomen: Present: soft, tenderness Vulva: both: normal Uterus: Present: fundal height above umbilicus. Absent: tenderness FHR: category 1 Uterine Contraction Monitor Mode: External Cervical Dilatation: 1.5 Cervical Effacement Percentage: 50 station: -1 Uterine Contraction Pattern: Irregular Extremities: normal - Labs Labs: Abnormal Labs 09/19/20 23:00 MCHC 36 H
[2020-09-23] MEDS: fentaNYL 100 MCG/2 ML INJ IV PRN (16:20)
--- NOTE | 2020-09-23 17:43 | Event Note ---
Date: 09/23/20 Pt with variable decels noted and Pitocin turned down by RN; Now Cat 1. POC discussed and Pt requesting Fentanyl for pain; agreeable to cooks catheter now. Placed without difficulty and pt tolerated procedure well. Pt reports contraction pain 5/10, moderate bloody show noted; SVE unchanged. Continue to monitor closely. FHT's cat 2 with minimal variability s/p Fentanyl. POC discussed and pt agrees to continued Pitocin administration. Dr Barbosa made aware.
--- NOTE | 2020-09-23 20:47 | Progress Note ---
Assessment and Plan Pitocin remains off per pt's request. Cooks catheter out spontaneously with bloody show noted at this time. SVE 3-4/50/-3. POC discussed with pt. Due to 2 emergency cases happening at this time and subsequent staffing, unable to restart Pitocin at this time. Plan to resume Pitocin per protocol once unit stable and pt agrees. - Patient Problems (1) Encounter for induction of labor Current Visit: Yes Status: Acute (2) 37 or more weeks gestation of Onset Date: ~09/19/20 Current Visit: Yes Status: Acute (3) Intrauterine growth restriction (IUGR) affecting care of mother, third trimester, single gestation Onset Date: ~09/19/20 Current Visit: Yes Status: Acute Subjective - Subjective Principal diagnosis: IOL for IUGR @ 37.5 weeks Patient reports: new complaints, vaginal bleeding, movement normal, contractions, no loss of fluid Objective - Vital Signs Vital Signs: Vital Signs - 12hr 09/23/20 09/23/20 09/23/20 09:13 09:19 09:25 Temperature Pulse Rate 221 H 102 H 113 H Respiratory Rate Blood Pressure Blood Pressure [Left] O2 Sat by Pulse 87 77 L 78 L Oximetry 09/23/20 09/23/20 09/23/20 09:30 09:36 09:38 Temperature Pulse Rate 65 85 Respiratory Rate Blood Pressure Blood Pressure [Left] O2 Sat by Pulse 87 92 92 Oximetry 09/23/20 09/23/20 09/23/20 09:41 09:43 09:53 Temperature 97.9 F Pulse Rate 78 92 H Respiratory Rate Blood Pressure 116/77 Blood Pressure [Left] O2 Sat by Pulse 58 L 96 Oximetry 09/23/20 09/23/20 09/23/20 11:56 11:58 14:19 Temperature 97.9 F Pulse Rate 91 H 90 35 L Respiratory 12 Rate Blood Pressure 110/76 Blood Pressure 110/76 [Left] O2 Sat by Pulse 77 L Oximetry 09/23/20 09/23/20 09/23/20 14:20 14:25 14:30 Temperature Pulse Rate 87 87 77 Respiratory Rate Blood Pressure Blood Pressure [Left] O2 Sat by Pulse 99 98 98 Oximetry 09/23/20 09/23/20 09/23/20 14:35 14:40 14:45 Temperature Pulse Rate 86 85 93 H Respiratory Rate Blood Pressure Blood Pressure [Left] O2 Sat by Pulse 98 99 98 Oximetry 09/23/20 09/23/20 09/23/20 14:50 14:55 15:00 Temperature Pulse Rate 84 91 H 89 Respiratory Rate Blood Pressure Blood Pressure [Left] O2 Sat by Pulse 99 98 99 Oximetry 09/23/20 09/23/20 09/23/20 15:05 15:10 15:20 Temperature Pulse Rate 82 91 H 85 Respiratory Rate Blood Pressure Blood Pressure [Left] O2 Sat by Pulse 99 99 100 Oximetry 09/23/20 09/23/20 09/23/20 15:25 15:30 15:35 Temperature Pulse Rate 84 78 89 Respiratory Rate Blood Pressure Blood Pressure [Left] O2 Sat by Pulse 99 99 98 Oximetry 09/23/20 09/23/20 09/23/20 15:40 15:45 15:50 Temperature Pulse Rate 86 83 101 H Respiratory Rate Blood Pressure Blood Pressure [Left] O2 Sat by Pulse 98 100 99 Oximetry 09/23/20 09/23/20 09/23/20 15:55 16:04 16:09 Temperature Pulse Rate 88 91 H 85 Respiratory Rate Blood Pressure Blood Pressure [Left] O2 Sat by Pulse 98 99 99 Oximetry 09/23/20 09/23/20 09/23/20 16:14 16:19 16:24 Temperature Pulse Rate 85 90 83 Respiratory Rate Blood Pressure Blood Pressure [Left] O2 Sat by Pulse 100 99 100 Oximetry 09/23/20 09/23/20 09/23/20 16:32 16:33 16:37 Temperature 97.8 F Pulse Rate 89 80 87 Respiratory 14 Rate Blood Pressure 118/69 Blood Pressure 118/69 [Left] O2 Sat by Pulse 100 99 100 Oximetry 09/23/20 09/23/20 09/23/20 16:42 16:47 16:52 Temperature Pulse Rate 78 76 79 Respiratory Rate Blood Pressure Blood Pressure [Left] O2 Sat by Pulse 100 100 99 Oximetry 09/23/20 09/23/20 09/23/20 16:57 17:02 17:07 Temperature Pulse Rate 74 77 81 Respiratory Rate Blood Pressure Blood Pressure [Left] O2 Sat by Pulse 100 99 99 Oximetry 09/23/20 09/23/20 09/23/20 17:12 17:17 17:22 Temperature Pulse Rate 100 H 84 98 H Respiratory Rate Blood Pressure Blood Pressure [Left] O2 Sat by Pulse 99 100 100 Oximetry 09/23/20 09/23/20 09/23/20 17:27 17:32 17:33 Temperature Pulse Rate 97 H 92 H 84 Respiratory Rate Blood Pressure Blood Pressure [Left] O2 Sat by Pulse 99 98 92 Oximetry 09/23/20 09/23/20 09/23/20 17:37 17:42 17:47 Temperature Pulse Rate 88 62 76 Respiratory Rate Blood Pressure Blood Pressure [Left] O2 Sat by Pulse 94 98 98 Oximetry 09/23/20 09/23/20 09/23/20 17:52 17:57 18:02 Temperature Pulse Rate 101 H 84 96 H Respiratory Rate Blood Pressure Blood Pressure [Left] O2 Sat by Pulse 99 100 100 Oximetry 09/23/20 09/23/20 09/23/20 18:10 18:15 18:20 Temperature Pulse Rate 91 H 85 81 Respiratory Rate Blood Pressure Blood Pressure [Left] O2 Sat by Pulse 94 99 100 Oximetry 09/23/20 09/23/20 09/23/20 18:25 18:30 18:35 Temperature Pulse Rate 86 94 H 82 Respiratory Rate Blood Pressure Blood Pressure [Left] O2 Sat by Pulse 100 100 100 Oximetry 09/23/20 09/23/20 09/23/20 18:37 18:40 18:45 Temperature 98.7 F Pulse Rate 100 H 101 H 97 H Respiratory 20 Rate Blood Pressure 114/83 Blood Pressure 114/83 [Left] O2 Sat by Pulse 100 99 Oximetry 09/23/20 09/23/20 09/23/20 18:50 18:55 19:00 Temperature Pulse Rate 85 83 86 Respiratory Rate Blood Pressure Blood Pressure [Left] O2 Sat by Pulse 99 99 100 Oximetry 09/23/20 09/23/20 09/23/20 19:05 19:06 19:10 Temperature Pulse Rate 87 81 92 H Respiratory Rate Blood Pressure Blood Pressure [Left] O2 Sat by Pulse 89 82 L 99 Oximetry 09/23/20 09/23/20 09/23/20 19:15 19:20 19:25 Temperature Pulse Rate 95 H 91 H 94 H Respiratory Rate Blood Pressure Blood Pressure [Left] O2 Sat by Pulse 100 99 99 Oximetry 09/23/20 09/23/20 09/23/20 19:30 20:43 20:45 Temperature 98.9 F Pulse Rate 90 84 Respiratory 18 Rate Blood Pressure 141/67 Blood Pressure [Left] O2 Sat by Pulse 99 Oximetry - Exam Breasts: deferred Cardiovascular: Regular rate Lungs: Normal air movement Abdomen: Present: normal appearance, soft Vulva: both: normal Uterus: Present: normal. Absent: tenderness FHR: auscultation normal, category 1 Uterine Contraction Monitor Mode: Palpation Uterine Contraction Pattern: Regular Uterine Tone Measurement Phase: Contraction Uterine Contraction Intensity: Moderate Extremities: normal - Labs Labs: Abnormal Labs 09/19/20 23:00 MCHC 36 H
[2020-09-23 21:01] LABS: Hematocrit 32.8 % (30.3-42.9); Mean Corpuscular HGB Conc 34 % (30-34); Mean Corpuscular Volume 82 fl (79-97); Platelet Count 203 K/mm3 (140-440); Red Blood Count 4.01 M/mm3 (3.65-5.03); Red Cell Distribution Width 13.8 % (13.2-15.2)
--- NOTE | 2020-09-24 04:56 | Event Note ---
Date: 09/24/20 Pt desires expectant management; POC reviewed and pt continues to decline pitocin induction of labor. SVE deferred. Pt resting and without complaints at this time. FHT's cat 1; Pt reports desire to rest and restart Pitocin per protocol in am. Dr Barbosa updated.
--- NOTE | 2020-09-24 07:30 | Event Note ---
Date: 09/24/20 (Pt wants to shower.) Pt would like to shower this AM. States that she is feeling some contractions. Explained plan of care for the day: start Pitocin after shower. Pt verbalized understanding.
[2020-09-24] MEDS: LACTATED RINGERS 1,000 ML IV SCH ×2 (08:48→09:46)
[2020-09-24] MEDS: OXYTOCIN DRIP 30 UNITS/500 ML BAG IV SCH (08:54)
[2020-09-24] MEDS ORDERED: LACTATED RINGERS 250 ML IV SOLN IV ONE (09:01)
[2020-09-24] MEDS ORDERED: ePHEDrine SULFATE 50 MG/1 ML INJ IV PRN (09:01)
[2020-09-24] MEDS ORDERED: diphenhydrAMINE 50 MG/ML VIAL IV PRN (09:01)
[2020-09-24] MEDS ORDERED: NalbUPHINE 10 MG/1 ML INJ IV PRN (09:01)
[2020-09-24] MEDS ORDERED: ONDANSETRON 4 MG/2 ML INJ IV PRN ×2 (09:01→20:05)
[2020-09-24] MEDS ORDERED: NALOXONE 2 MG/2 ML INJ IV PRN (09:01)
--- NOTE | 2020-09-24 09:36 | Anesthesia Consultation ---
Anesthesia Consult and Med Hx Date of service: 09/24/20 - Airway Anesthetic Teeth Evaluation: Good ROM Head & Neck: Adequate Mental/Hyoid Distance: Adequate Mallampati Class: Class I Intubation Access Assessment: Good - Pulmonary Exam CTA: Yes - Cardiac Exam Cardiac Exam: RRR - Pre-Operative Health Status ASA Pre-Surgery Classification: ASA2 Proposed Anesthetic Plan: Epidural - Pulmonary Hx Smoking: No Hx Asthma: No Hx Sleep Apnea: No - Cardiovascular System Hx Hypertension: No Hx Heart Attack/AMI: No Hx Angina: No - Central Nervous System Hx Seizures: No Hx Psychiatric Problems: No - Gastrointestinal Hx Gastroesophageal Reflux Disease: No - Endocrine Hx Renal Disease: No Hx Liver Disease: No Hx Insulin Dependent Diabetes: No Hx Non-Insulin Dependent Diabetes: No Hx Hypothyroidism: No Hx Hyperthyroidism: No - Hematic Hx Anemia: No Hx Sickle Cell Disease: No - Other Systems Hx Alcohol Use: No
--- NOTE | 2020-09-24 09:37 | Progress Note ---
Labor Epidural - Labor Epidural Start Time: 09:15 Stop Time: 09:30 Performed by:: FRANKIE NIX Procedure: Patient is requesting epidural for labor and pain. H&P, labs were reviewed. Patient IDed, H&P reviewed, all questions and concerns were answered, and consent was signed. Timeout was performed at bedside. Patient in sitting position. Sterile prep and drape was performed. 3ml of 1% lidocaine skin wheal at L[3]- L [4]. 18-gauge cherrie epidural needle was advanced to loss of resistance with air technique 6cm. Negative CSF negative blood. Epidural catheter advanced to [12] centimeters. [negative] Aspiration [negative] test dose. Sterile dressing applied. Patient tolerated procedure.
[2020-09-24] MEDS ORDERED: fentaNYL-BUPIV 2 MCG/ML-0.125% 200 MCG/100 ML BAG EPIDURAL SCH (10:00)
--- NOTE | 2020-09-24 13:20 | Progress Note ---
<ANDERS JORGE - Last Filed: 09/24/20 13:23> Assessment and Plan A: 30 y.o. @ 37.6 wks, IOL d/t IUGR. AROM clear fluid. Cervical exam 3.5/50/-2. P: Continue with Pitocin per protocol. Will re-evaluate cervical exam in 3 hrs. - Patient Problems (1) Intrauterine growth restriction (IUGR) affecting care of mother, third trimester, single gestation Onset Date: ~09/19/20 Current Visit: Yes Status: Acute (2) 37 or more weeks gestation of Onset Date: ~09/19/20 Current Visit: Yes Status: Acute Subjective - Subjective Date of service: 09/24/20 (Pt comfortable with epidural.) Principal diagnosis: IOL for IUGR @ 37.6 weeks Patient reports: new complaints, vaginal bleeding, movement normal, contractions, no loss of fluid Objective - Vital Signs Vital Signs: Vital Signs - 12hr 09/24/20 09/24/20 09/24/20 08:25 08:26 09:00 Temperature 98.5 F Pulse Rate 94 H 94 H 109 H Respiratory 14 Rate Blood Pressure 120/76 Blood Pressure 120/76 [Left] O2 Sat by Pulse 99 Oximetry 09/24/20 09/24/20 09/24/20 09:05 09:10 09:15 Temperature Pulse Rate 101 H 111 H 122 H Respiratory Rate Blood Pressure Blood Pressure [Left] O2 Sat by Pulse 100 100 100 Oximetry 09/24/20 09/24/20 09/24/20 09:17 09:20 09:23 Temperature Pulse Rate 113 H 113 H 107 H Respiratory Rate Blood Pressure 131/82 134/70 Blood Pressure [Left] O2 Sat by Pulse 100 Oximetry 09/24/20 09/24/20 09/24/20 09:25 09:26 09:28 Temperature Pulse Rate 106 H 102 H 106 H Respiratory Rate Blood Pressure 128/70 130/67 Blood Pressure [Left] O2 Sat by Pulse 100 Oximetry 09/24/20 09/24/20 09/24/20 09:30 09:32 09:35 Temperature Pulse Rate 116 H 107 H 88 Respiratory Rate Blood Pressure 127/78 Blood Pressure [Left] O2 Sat by Pulse 100 100 Oximetry 09/24/20 09/24/20 09/24/20 09:38 09:40 09:42 Temperature Pulse Rate 90 89 90 Respiratory Rate Blood Pressure 115/70 112/59 Blood Pressure [Left] O2 Sat by Pulse 100 Oximetry 09/24/20 09/24/20 09/24/20 09:43 09:45 09:47 Temperature Pulse Rate 86 88 83 Respiratory Rate Blood Pressure 110/56 106/53 Blood Pressure [Left] O2 Sat by Pulse 99 Oximetry 09/24/20 09/24/20 09/24/20 09:50 09:52 09:55 Temperature Pulse Rate 85 82 84 Respiratory Rate Blood Pressure 102/57 Blood Pressure [Left] O2 Sat by Pulse 100 99 Oximetry 09/24/20 09/24/20 09/24/20 10:00 10:05 10:09 Temperature Pulse Rate 95 H 83 79 Respiratory Rate Blood Pressure 112/59 Blood Pressure [Left] O2 Sat by Pulse 99 98 Oximetry 09/24/20 09/24/20 09/24/20 10:10 10:15 10:20 Temperature Pulse Rate 82 84 83 Respiratory Rate Blood Pressure Blood Pressure [Left] O2 Sat by Pulse 99 98 98 Oximetry 09/24/20 09/24/20 09/24/20 10:23 10:24 10:25 Temperature Pulse Rate 82 90 86 Respiratory Rate Blood Pressure 109/58 Blood Pressure [Left] O2 Sat by Pulse 86 100 Oximetry 09/24/20 09/24/20 09/24/20 10:30 10:35 10:40 Temperature Pulse Rate 92 H 87 87 Respiratory Rate Blood Pressure 120/69 Blood Pressure [Left] O2 Sat by Pulse 100 100 100 Oximetry 09/24/20 09/24/20 09/24/20 10:45 10:50 10:53 Temperature Pulse Rate 89 90 90 Respiratory Rate Blood Pressure 107/65 Blood Pressure [Left] O2 Sat by Pulse 100 100 Oximetry 09/24/20 09/24/20 09/24/20 10:55 11:00 11:05 Temperature Pulse Rate 80 83 75 Respiratory Rate Blood Pressure Blood Pressure [Left] O2 Sat by Pulse 100 100 100 Oximetry 09/24/20 09/24/20 09/24/20 11:08 11:10 11:15 Temperature Pulse Rate 76 84 107 H Respiratory Rate Blood Pressure 108/68 Blood Pressure [Left] O2 Sat by Pulse 100 100 Oximetry 09/24/20 09/24/20 09/24/20 11:20 11:25 11:30 Temperature Pulse Rate 86 91 H 104 H Respiratory Rate Blood Pressure Blood Pressure [Left] O2 Sat by Pulse 100 100 100 Oximetry 09/24/20 09/24/20 09/24/20 11:35 11:40 11:45 Temperature Pulse Rate 90 98 H 100 H Respiratory Rate Blood Pressure Blood Pressure [Left] O2 Sat by Pulse 100 100 100 Oximetry 09/24/20 09/24/20 09/24/20 11:50 11:55 12:00 Temperature Pulse Rate 105 H 112 H 99 H Respiratory Rate Blood Pressure Blood Pressure [Left] O2 Sat by Pulse 100 100 100 Oximetry 09/24/20 09/24/20 09/24/20 12:05 12:10 12:15 Temperature Pulse Rate 107 H 94 H 100 H Respiratory Rate Blood Pressure Blood Pressure [Left] O2 Sat by Pulse 100 100 100 Oximetry 09/24/20 09/24/20 09/24/20 12:20 12:25 12:30 Temperature Pulse Rate 93 H 101 H 98 H Respiratory Rate Blood Pressure Blood Pressure [Left] O2 Sat by Pulse 100 100 100 Oximetry 09/24/20 09/24/20 09/24/20 12:35 12:40 12:45 Temperature Pulse Rate 92 H 91 H 94 H Respiratory Rate Blood Pressure Blood Pressure [Left] O2 Sat by Pulse 100 100 100 Oximetry 09/24/20 09/24/20 09/24/20 12:50 12:55 13:00 Temperature Pulse Rate 90 97 H 97 H Respiratory Rate Blood Pressure Blood Pressure [Left] O2 Sat by Pulse 100 100 100 Oximetry 09/24/20 09/24/20 09/24/20 13:05 13:10 13:12 Temperature Pulse Rate 98 H 99 H 100 H Respiratory Rate Blood Pressure Blood Pressure [Left] O2 Sat by Pulse 100 100 92 Oximetry 09/24/20 13:13 Temperature 97.9 F Pulse Rate 88 Respiratory Rate Blood Pressure 114/81 Blood Pressure 114/81 [Left] O2 Sat by Pulse Oximetry - Exam Narrative Exam: Dr. Rdz made aware of patient's status. He has spoken to the patient regarding continuing with labor and implications for a . Will re evaluate patients labor progress in 3 hours and a decision will be made at that time. Breasts: deferred Cardiovascular: Regular rate Lungs: Normal air movement Abdomen: Present: normal appearance, soft Vulva: both: normal Uterus: Present: normal FHR: category 2 (Variable decelerations noted into the 80's. Return to baseline after Pitocin turned off. ) Uterine Contraction Monitor Mode: Internal (Internals placed after AROM) Cervical Dilatation: 3.5 (AROM clear fluid) Cervical Effacement Percentage: 50 station: -2 Uterine Contraction Pattern: Regular Uterine Tone Measurement Phase: Resting Uterine Contraction Intensity: Moderate Extremities: normal - Labs Labs: Abnormal Labs 09/19/20 09/23/20 23:00 20:11 WBC 13.5 H MCH 27 L MCHC 36 H Laboratory Results - last 24 hr 09/23/20 09/23/20 20:11 20:38 WBC 13.5 H RBC 4.01 Hgb 11.0 Hct 32.8 MCV 82 MCH 27 L MCHC 34 RDW 13.8 Plt Count 203 Blood Type O POSITIVE Antibody Screen Negative <CRISPIN RDZ - Last Filed: 09/24/20 15:06> Assessment and Plan - Patient Problems (1) Intrauterine growth restriction (IUGR) affecting care of mother, third trimester, single gestation Onset Date: ~09/19/20 Current Visit: Yes Status: Acute Plan to address problem: Discussed with the patient indication for section including maternal and indications. This included discussions on definition of arrest of labor and nonreassuring tracing. All patient's questions were answered. Objective - Vital Signs Vital Signs: Vital Signs - 12hr 09/24/20 09/24/20 09/24/20 08:25 08:26 09:00 Temperature 98.5 F Pulse Rate 94 H 94 H 109 H Respiratory 14 Rate Blood Pressure 120/76 Blood Pressure 120/76 [Left] O2 Sat by Pulse 99 Oximetry 09/24/20 09/24/20 09/24/20 09:05 09:10 09:15 Temperature Pulse Rate 101 H 111 H 122 H Respiratory Rate Blood Pressure Blood Pressure [Left] O2 Sat by Pulse 100 100 100 Oximetry 09/24/20 09/24/20 09/24/20 09:17 09:20 09:23 Temperature Pulse Rate 113 H 113 H 107 H Respiratory Rate Blood Pressure 131/82 134/70 Blood Pressure [Left] O2 Sat by Pulse 100 Oximetry 09/24/20 09/24/20 09/24/20 09:25 09:26 09:28 Temperature Pulse Rate 106 H 102 H 106 H Respiratory Rate Blood Pressure 128/70 130/67 Blood Pressure [Left] O2 Sat by Pulse 100 Oximetry 09/24/20 09/24/20 09/24/20 09:30 09:32 09:35 Temperature Pulse Rate 116 H 107 H 88 Respiratory Rate Blood Pressure 127/78 Blood Pressure [Left] O2 Sat by Pulse 100 100 Oximetry 09/24/20 09/24/20 09/24/20 09:38 09:40 09:42 Temperature Pulse Rate 90 89 90 Respiratory Rate Blood Pressure 115/70 112/59 Blood Pressure [Left] O2 Sat by Pulse 100 Oximetry 09/24/20 09/24/20 09/24/20 09:43 09:45 09:47 Temperature Pulse Rate 86 88 83 Respiratory Rate Blood Pressure 110/56 106/53 Blood Pressure [Left] O2 Sat by Pulse 99 Oximetry 09/24/20 09/24/20 09/24/20 09:50 09:52 09:55 Temperature Pulse Rate 85 82 84 Respiratory Rate Blood Pressure 102/57 Blood Pressure [Left] O2 Sat by Pulse 100 99 Oximetry 09/24/20 09/24/20 09/24/20 10:00 10:05 10:09 Temperature Pulse Rate 95 H 83 79 Respiratory Rate Blood Pressure 112/59 Blood Pressure [Left] O2 Sat by Pulse 99 98 Oximetry 09/24/20 09/24/20 09/24/20 10:10 10:15 10:20 Temperature Pulse Rate 82 84 83 Respiratory Rate Blood Pressure Blood Pressure [Left] O2 Sat by Pulse 99 98 98 Oximetry 09/24/20 09/24/20 09/24/20 10:23 10:24 10:25 Temperature Pulse Rate 82 90 86 Respiratory Rate Blood Pressure 109/58 Blood Pressure [Left] O2 Sat by Pulse 86 100 Oximetry 09/24/20 09/24/20 09/24/20 10:30 10:35 10:40 Temperature Pulse Rate 92 H 87 87 Respiratory Rate Blood Pressure 120/69 Blood Pressure [Left] O2 Sat by Pulse 100 100 100 Oximetry 09/24/20 09/24/20 09/24/20 10:45 10:50 10:53 Temperature Pulse Rate 89 90 90 Respiratory Rate Blood Pressure 107/65 Blood Pressure [Left] O2 Sat by Pulse 100 100 Oximetry 09/24/20 09/24/20 09/24/20 10:55 11:00 11:05 Temperature Pulse Rate 80 83 75 Respiratory Rate Blood Pressure Blood Pressure [Left] O2 Sat by Pulse 100 100 100 Oximetry 09/24/20 09/24/20 09/24/20 11:08 11:10 11:15 Temperature Pulse Rate 76 84 107 H Respiratory Rate Blood Pressure 108/68 Blood Pressure [Left] O2 Sat by Pulse 100 100 Oximetry 09/24/20 09/24/20 09/24/20 11:20 11:25 11:30 Temperature Pulse Rate 86 91 H 104 H Respiratory Rate Blood Pressure Blood Pressure [Left] O2 Sat by Pulse 100 100 100 Oximetry 09/24/20 09/24/20 09/24/20 11:35 11:40 11:45 Temperature Pulse Rate 90 98 H 100 H Respiratory Rate Blood Pressure Blood Pressure [Left] O2 Sat by Pulse 100 100 100 Oximetry 09/24/20 09/24/20 09/24/20 11:50 11:55 12:00 Temperature Pulse Rate 105 H 112 H 99 H Respiratory Rate Blood Pressure Blood Pressure [Left] O2 Sat by Pulse 100 100 100 Oximetry 09/24/20 09/24/20 09/24/20 12:05 12:10 12:15 Temperature Pulse Rate 107 H 94 H 100 H Respiratory Rate Blood Pressure Blood Pressure [Left] O2 Sat by Pulse 100 100 100 Oximetry 09/24/20 09/24/20 09/24/20 12:20 12:25 12:30 Temperature Pulse Rate 93 H 101 H 98 H Respiratory Rate Blood Pressure Blood Pressure [Left] O2 Sat by Pulse 100 100 100 Oximetry 09/24/20 09/24/20 09/24/20 12:35 12:40 12:45 Temperature Pulse Rate 92 H 91 H 94 H Respiratory Rate Blood Pressure Blood Pressure [Left] O2 Sat by Pulse 100 100 100 Oximetry 09/24/20 09/24/20 09/24/20 12:50 12:55 13:00 Temperature Pulse Rate 90 97 H 97 H Respiratory Rate Blood Pressure Blood Pressure [Left] O2 Sat by Pulse 100 100 100 Oximetry 09/24/20 09/24/20 09/24/20 13:05 13:10 13:12 Temperature Pulse Rate 98 H 99 H 100 H Respiratory Rate Blood Pressure Blood Pressure [Left] O2 Sat by Pulse 100 100 92 Oximetry 09/24/20 09/24/20 09/24/20 13:13 13:15 13:20 Temperature 97.9 F Pulse Rate 88 88 94 H Respiratory Rate Blood Pressure 114/81 Blood Pressure 114/81 [Left] O2 Sat by Pulse 100 100 Oximetry 09/24/20 09/24/20 09/24/20 13:25 13:30 13:35 Temperature Pulse Rate 99 H 104 H 103 H Respiratory Rate Blood Pressure Blood Pressure [Left] O2 Sat by Pulse 100 99 100 Oximetry 09/24/20 09/24/20 09/24/20 13:40 13:45 13:50 Temperature Pulse Rate 99 H 100 H 102 H Respiratory Rate Blood Pressure Blood Pressure [Left] O2 Sat by Pulse 100 100 100 Oximetry 09/24/20 09/24/20 09/24/20 13:55 13:59 14:00 Temperature Pulse Rate 101 H 107 H 103 H Respiratory Rate Blood Pressure Blood Pressure [Left] O2 Sat by Pulse 100 92 100 Oximetry 09/24/20 09/24/20 09/24/20 14:05 14:10 14:15 Temperature Pulse Rate 105 H 109 H 103 H Respiratory Rate Blood Pressure Blood Pressure [Left] O2 Sat by Pulse 100 100 100 Oximetry 09/24/20 09/24/20 09/24/20 14:20 14:25 14:30 Temperature Pulse Rate 101 H 103 H 102 H Respiratory Rate Blood Pressure Blood Pressure [Left] O2 Sat by Pulse 100 100 100 Oximetry 09/24/20 09/24/20 09/24/20 14:35 14:40 14:45 Temperature Pulse Rate 102 H 103 H 113 H Respiratory Rate Blood Pressure Blood Pressure [Left] O2 Sat by Pulse 100 100 100 Oximetry 09/24/20 09/24/20 09/24/20 14:50 14:55 15:00 Temperature Pulse Rate 107 H 110 H 106 H Respiratory Rate Blood Pressure Blood Pressure [Left] O2 Sat by Pulse 100 100 100 Oximetry - Labs Labs: Abnormal Labs 09/19/20 09/23/20 23:00 20:11 WBC 13.5 H MCH 27 L MCHC 36 H Laboratory Results - last 24 hr 09/23/20 09/23/20 20:11 20:38 WBC 13.5 H RBC 4.01 Hgb 11.0 Hct 32.8 MCV 82 MCH 27 L MCHC 34 RDW 13.8 Plt Count 203 Blood Type O POSITIVE Antibody Screen Negative
--- NOTE | 2020-09-24 16:11 | Event Note ---
Date: 09/24/20 (Unchanged cervical exam.) Pt with unchanged cervical exam. Discussed with patient the need for a at this time. Allowed patient to ask questions regarding and those questions were answered to the best of my ability. She agrees to proceed with a at this time. Dr. Lara aware. Consents signed and on chart. Pre op orders placed.
[2020-09-24] MEDS ORDERED: HYDROmorphone 1 MG/1 ML INJ IV PRN (16:28)
[2020-09-24] MEDS ORDERED: PROMETHAZINE 25 MG RECT SUPP PR PRN (16:28)
--- NOTE | 2020-09-24 16:29 | Anesthesia Day of Surgery ---
Anesthesia Day of Surgery - Day of Surgery Patient Examined: Yes Patient H&P Reviewed: Yes Patient is NPO: Yes Beta Blockers: No Cardiac Clearance: No Pulmonary Clearance: No Randell's Test: N/A
[2020-09-24] MEDS ORDERED: METOCLOPRAMIDE 10 MG/2 ML INJ IV ONE (16:30)
[2020-09-24] MEDS ORDERED: FAMOTIDINE 20 MG/2 ML INJ IV ONE (16:30)
[2020-09-24] MEDS ORDERED: BICITRA ORAL LIQD 30ML PO ONE (16:30)
[2020-09-24] MEDS ORDERED: LIDOCAINE 2%/EPINEPHRINE 1:200,000 VIAL (20 ML) INFILTRATI ONE (16:32)
[2020-09-24] MEDS ORDERED: BUPIVACAINE/PF (0.25%) 2.5 MG/ML 30 ML VIAL INFILTRATI ONE (16:34)
[2020-09-24] MEDS ORDERED: PHENYLEPHRINE/NS 1,000 MCG/10 ML SYRINGE (OR USE) IV ONE (17:00)
[2020-09-24] MEDS ORDERED: ceFAZolin/Water 2 GM/20 ML 2 GM/20 ML SYRINGE IV NR (17:00)
--- NOTE | 2020-09-24 17:12 | Event Note ---
Date: 09/24/20 Patient informed the risks of the surgery include bleeding possibly bleeding heavy enough to require blood transfusion, infection possible damage to bowel bladder ureter. All questions answered. Patient agrees to proceed
[2020-09-24] MEDS ORDERED: KETOROLAC 30 MG/1 ML INJ ONE (17:18)
[2020-09-24] MEDS ORDERED: dexAMETHasone 20 MG/5 ML VIAL ONE (17:18)
[2020-09-24] MEDS ORDERED: ONDANSETRON 4 MG/2 ML INJ ONE (17:29)
--- NOTE | 2020-09-24 18:47 | Progress Note ---
Regional Anesthesia Block - Regional Anesthesia Block Start Time: 18:31 Stop Time: 18:36 Performed By:: FRANKIE NIX Procedure: Patient consented for TAP block for post surgical pain management. Patient identified, monitors placed, and time out performed. Mid axillary TAP identified bilaterally via ultrasound. Skin prepped bilaterally with [chlorhexidine] and [20g stimuplex] needle advanced to the TAP. 30ml [Marcaine 0.25% with 25mcg Precedex and Decadron 5mg] injected under ultrasound guidance on the [left] side. 30ml [Marcaine 0.25% with 25mcg Precedex and Decadron 5mg] injected under ultrasound guidance on the [right] side. Negative aspiration every 5mL, Patient tolerated the procedure well. No apparent complications seen.
--- NOTE | 2020-09-24 18:51 | Operative Report ---
Operative Report Operative Report: Date of procedure: September 24, 2020 Pre-operative diagnosis: Intrauterine at 38 weeks with intrauterine growth restriction, failed induction with arrest of dilatation and descent Post-operative diagnosis: Same plus small leiomyomata Procedure name(s): Primary low-transverse section Surgeon: Horacio Lara MD Press Writer: Nicole Potter, certified nurse waste and batting waste chopper Anesthesia: Epidural QBL: Complications: None Findings: Patient with uterus with small myomas anteriorly all less than centimeter in diameter. Normal fallopian tubes and ovaries bilaterally. Male infant with a nuchal cord x1. Weight 4 pounds 14 ounces. Apgars 8 at 1 minute and 9 at 5 minutes Specimen(s): None Procedure: The patient was brought to the operating room. Her epidural was dosed was placed without any complications. She was then placed in left lateral tilt. Prepped and draped in the usual sterile manner. After testing for adequate anesthesia level, a Pfannenstiel incision was made. This incision was taken down to the fascia. The fascia was then nicked in the midline. This incision was extended out laterally with Rincon scissors. The fascia was then sharply and bluntly from the underlying rectus muscles. The rectus muscles were bluntly and sharply . The peritoneum was then entered with the railroad operator's fingers. This incision was spread vertically with care not to damage the bladder below. The Guy self-retaining tractor was then placed without any difficulty. The bladder flap was then formed sharply and bluntly with Metzenbaum scissors. A transverse incision was made in lower uterine segment. This incision was extended laterally with the operators fingers. The amniotic sac was then entered bluntly with the railroad operator's fingers. The infant was delivered from the vertex position. Bulb suction on the mother's abdomen. Cord was double clamped and cut. The infant was then passed to the nursery personnel who were in attendance. The above scores were given by the nursery personnel. The placenta was then bluntly removed. The uterus was then externalized and wiped clean the remaining products. The uterine incision was closed in layers. The first incision was closed in a locking manner using 0 Vicryl. This was followed by imbricating stitch also with 0 Vicryl. This closure was hemostatic additional cauqni-if-noyoh suture. The bladder flap was copiously irrigated and found to be hemostatic. The pelvis was copiously irrigated and found to be hemostatic. The uterus was then placed back to the patient's abdomen. The retractors were removed. The rectus muscles were inspected and found to be hemostatic. The fascia was then closed in a running manner using 0 Vicryl. This incision was hemostatic after irrigation and Bovie. The skin was reapproximated with 4-0 Vicryl subcuticularly. Dermabond was placed along the skin closure. The patient tolerated procedure well. Her urine was clear. The was admitted to the intensive care nursery. The patient was accompanied to recovery room in good condition. Instrument count correct times 3.
[2020-09-24] MEDS ORDERED: WITCH HAZEL/ GLYCERIN PAD TP PRN (20:05)
[2020-09-24] MEDS ORDERED: MAGNESIUM HYDROXIDE (MOM) ORAL LIQD UDC PO PRN (20:05)
[2020-09-24] MEDS ORDERED: HYDROcodone/ACETAMINOPHEN 5-325 MG TAB PO PRN (20:05)
[2020-09-24] MEDS ORDERED: OXYTOCIN DRIP 30 UNITS/500 ML BAG IV SCH (20:05)
[2020-09-24] MEDS ORDERED: NALOXONE 0.4 MG/1 ML INJ IV PRN (20:05)
[2020-09-24] MEDS ORDERED: D5W/LACTATED RINGERS 1,000 ML IV SCH (20:05)
[2020-09-25] MEDS: KETOROLAC 30 MG/1 ML INJ IV SCH ×4 (00:54→18:45)
[2020-09-25] MEDS: ceFAZolin/NS 1 GM/50 ML 1 GM/50 ML BAG IV SCH ×2 (03:21→10:36)
[2020-09-25 07:31] LABS: Hematocrit 27.8 % (30.3-42.9); Hemoglobin 9.5 gm/dl (10.1-14.3)
--- NOTE | 2020-09-25 09:04 | Progress Note ---
Assessment and Plan A: 30 y.o. s/p primary , PO approximately 14 hours. P: Continue with care. Encourage ambulation. Advance diet as tolerated. Subjective - Subjective Date of service: 09/25/20 (Ambulating in room.) Principal diagnosis: s/p primary d/t failed IOL, PO approximately 14 hours Patient reports: appetite normal, voiding normally, pain well controlled, flatus, ambulating normally Hiram: doing well Objective - Vital Signs Latest vital signs: Vital Signs Temp Pulse Resp BP BP Pulse Ox 09/25/20 04:17 98.2 F 85 20 108/62 97 09/24/20 20:15 97.8 F 94 H 18 108/71 97 09/24/20 19:45 89 15 105/66 97 09/24/20 19:30 83 17 111/74 99 09/24/20 19:15 98.4 F 84 17 109/76 99 09/24/20 19:00 97.9 F 73 17 132/80 99 09/24/20 18:45 97.9 F 77 14 112/71 99 09/24/20 18:40 98.3 F 80 18 119/82 97 09/24/20 18:35 98.3 F 88 14 109/67 100 09/24/20 18:30 98.3 F 103 H 12 96/47 100 09/24/20 17:12 116 H 100 09/24/20 17:10 117 H 100 09/24/20 17:05 110 H 100 09/24/20 17:00 106 H 100 09/24/20 16:55 111 H 100 09/24/20 16:50 108 H 100 09/24/20 16:45 104 H 100 09/24/20 16:40 110 H 100 09/24/20 16:35 110 H 100 09/24/20 16:30 113 H 100 09/24/20 16:25 109 H 100 09/24/20 16:20 102 H 100 09/24/20 16:15 107 H 99 09/24/20 16:10 108 H 100 09/24/20 16:05 114 H 100 09/24/20 16:00 111 H 100 09/24/20 15:55 109 H 100 09/24/20 15:50 107 H 100 09/24/20 15:45 110 H 100 09/24/20 15:40 112 H 100 09/24/20 15:35 118 H 100 09/24/20 15:30 117 H 100 09/24/20 15:25 108 H 100 09/24/20 15:20 113 H 100 09/24/20 15:15 117 H 100 09/24/20 15:10 109 H 100 09/24/20 15:05 111 H 100 09/24/20 15:00 106 H 100 09/24/20 14:55 110 H 100 09/24/20 14:50 107 H 100 09/24/20 14:45 113 H 100 09/24/20 14:40 103 H 100 09/24/20 14:35 102 H 100 09/24/20 14:30 102 H 100 09/24/20 14:25 103 H 100 09/24/20 14:20 101 H 100 09/24/20 14:15 103 H 100 09/24/20 14:10 109 H 100 09/24/20 14:05 105 H 100 09/24/20 14:00 103 H 100 09/24/20 13:59 107 H 92 09/24/20 13:55 101 H 100 09/24/20 13:50 102 H 100 09/24/20 13:45 100 H 100 09/24/20 13:40 99 H 100 09/24/20 13:35 103 H 100 09/24/20 13:30 104 H 99 09/24/20 13:25 99 H 100 09/24/20 13:20 94 H 100 09/24/20 13:15 88 100 09/24/20 13:13 97.9 F 88 114/81 114/81 09/24/20 13:12 100 H 92 09/24/20 13:10 99 H 100 09/24/20 13:05 98 H 100 09/24/20 13:00 97 H 100 09/24/20 12:55 97 H 100 09/24/20 12:50 90 100 09/24/20 12:45 94 H 100 09/24/20 12:40 91 H 100 09/24/20 12:35 92 H 100 09/24/20 12:30 98 H 100 09/24/20 12:25 101 H 100 09/24/20 12:20 93 H 100 09/24/20 12:15 100 H 100 09/24/20 12:10 94 H 100 09/24/20 12:05 107 H 100 09/24/20 12:00 99 H 100 09/24/20 11:55 112 H 100 09/24/20 11:50 105 H 100 09/24/20 11:45 100 H 100 09/24/20 11:40 98 H 100 09/24/20 11:35 90 100 09/24/20 11:30 104 H 100 09/24/20 11:25 91 H 100 09/24/20 11:20 86 100 09/24/20 11:15 107 H 100 09/24/20 11:10 84 100 09/24/20 11:08 76 108/68 09/24/20 11:05 75 100 09/24/20 11:00 83 100 09/24/20 10:55 80 100 09/24/20 10:53 90 107/65 09/24/20 10:50 90 100 09/24/20 10:45 89 100 09/24/20 10:40 87 120/69 100 09/24/20 10:35 87 100 09/24/20 10:30 92 H 100 09/24/20 10:25 86 100 09/24/20 10:24 90 86 09/24/20 10:23 82 109/58 09/24/20 10:20 83 98 09/24/20 10:15 84 98 09/24/20 10:10 82 99 09/24/20 10:09 79 112/59 09/24/20 10:05 83 98 09/24/20 10:00 95 H 99 09/24/20 09:55 84 99 09/24/20 09:52 82 102/57 09/24/20 09:50 85 100 09/24/20 09:47 83 106/53 09/24/20 09:45 88 99 09/24/20 09:43 86 110/56 09/24/20 09:42 90 112/59 09/24/20 09:40 89 100 09/24/20 09:38 90 115/70 09/24/20 09:35 88 100 09/24/20 09:32 107 H 127/78 09/24/20 09:30 116 H 100 09/24/20 09:28 106 H 130/67 09/24/20 09:26 102 H 128/70 09/24/20 09:25 106 H 100 09/24/20 09:23 107 H 134/70 09/24/20 09:20 113 H 100 09/24/20 09:17 113 H 131/82 09/24/20 09:15 122 H 100 09/24/20 09:10 111 H 100 09/24/20 09:05 101 H 100 Intake and Output 09/24/20 09/25/20 09/25/20 22:59 06:59 14:59 Intake Total 1200 240 50 Output Total 900 1600 Balance 300 -1360 50 Intake: IV 1200 50 ANCEF/NS 1 GM/50 ML 1 gm 50 In 50 ml @ 100 mls/hr IV Q8H JUNIOR Rx#:[id number] Oral 240 Output: Urine 900 1600 Indwelling Catheter 1600 Uretheral (Reis) 400 Other: Total, Intake Amount 240 Total, Output Amount 1600 Estimated Blood Loss 479 - Exam Narrative Exam: Pt up walking around in the room. States that pain medication is helping with pain. Discussed post op care. Pt verbalized understanding. Breasts: Present: deferred Cardiovascular: Present: Regular rate Lungs: Present: Normal air movement Abdomen: Present: normal appearance, soft Uterus: Present: normal, firm Extremities: Present: edema (Trace edema noted. ) Incision: Present: normal, dry, intact, other (No s/sx of infection, no drainage noted. ) - Labs Labs: Abnormal lab results 09/25/20 Range/Units 06:47 Hgb 9.5 L (10.1-14.3) gm/dl Hct 27.8 L (30.3-42.9) %
[2020-09-25] MEDS: DOCUSATE SODIUM 100 MG CAP PO SCH ×2 (10:35→21:37)
[2020-09-25] MEDS: PRENATAL VIT27-FE FUMARATE-FOLIC ACID VIT TAB PO SCH (10:35)
[2020-09-25] MEDS: FERROUS SULFATE 325 MG TAB PO SCH (11:06)
[2020-09-25] MEDS: LANOLIN/ZINC/DIMETHICONE (LANSINOH) 7 GM TP PRN (12:50)
[2020-09-25] MEDS: HYDROcodone/ACETAMINOPHEN 5-325 MG TAB PO PRN ×2 (12:55→21:37)
--- NOTE | 2020-09-25 16:53 | Post Anesthesia Evaluation ---
- Post Anesthesia Evaluation Patient Participated: Yes Airway Patent: Yes Stable Respiratory Function: Yes Nausea/Vomiting: No Temp > 96.8F: Yes Pain Manageable: Yes Adequeate Hydration: Yes Anesthesia Complications: No Block Receding Appropriately: Yes Patient on Ventilator: No
[2020-09-25] MEDS: IBUPROFEN 800 MG TAB PO PRN (18:45)
[2020-09-25] MEDS ORDERED: IBUPROFEN 600 MG TAB PO PRN (18:52)
--- NOTE | 2020-09-26 06:42 | Discharge Summary ---
Providers - Providers Date of Admission: 09/19/20 21:27 Date of discharge: 09/26/20 (pt desires d/c) Attending physician: CRISPIN RDZ 09/24/20 20:05 Consult to Land Surveyor Manager [CONS] Routine Reason For Exam: Primary care physician: CRISPIN RDZ Hospitalization Reason for admission: induction of labor, IUP at term Procedure: primary low transverse Episiotomy: none Laceration: none Incision: normal, dry, intact Other procedures: none complications: none Discharge diagnosis: IUP at term delivered Maddock baby: male Hospital course: Failed IOL uncomplicated primary section Pt resting FOB attending to NB. VSS FF below umb Lochia scant Incision D&I H&H 12/26 no s/sx of anemia. Doing well s/p section. P: D/C today with instructions RTO 1 week circ and postop RX on chart. Condition at discharge: Good Disposition: DC-01 TO HOME OR SELFCARE - Discharge Diagnoses (1) delivery delivered Status: Acute Comment: RTO 1 week postop care Plan - Discharge Medications Prescriptions: Lidocain2.5%/Prilocai2.5% [Emla] 5 gm TP ONCE #1 tube Ferrous Sulfate [Feosol 325 MG tab] 325 mg PO BID #60 tablet Ibuprofen [Motrin] 800 mg PO TID PRN #30 tablet PRN Reason: Pain oxyCODONE /ACETAMINOPHEN [Percocet 5/325 mg] 1 - 2 tab PO Q6HR PRN #20 tablet PRN Reason: Pain - Provider Discharge Summary Activity: routine, no sex for 6 weeks, no heavy lifting 4 weeks, no strenuous exercise Diet: routine Instructions: routine Additional instructions: [] Smoking cessation referral if applicable(refer to patient education folder for contact #) [] Refer to [facility]'s [facility] Booklet Call your doctor immediately for: * Fever > 100.5 * Heavy vaginal bleeding ( >1 pad per hour) * Severe persistent headache * Shortness of breath * Reddened, hot, painful area to leg or breast * Drainage or odor from incision. * Keep incision clean and dry at all times and follow doctor's instructions regarding bathing/showering - Follow up plan Follow up: CRISIPN RDZ MD [Primary Care Provider] - 7 Days (Congratulations! Please call [phone] to schedule your postoperative visit and your son's circumcision in 1 week. Bring the EMLA cream with you to his visit Do NOT use at home. Take medications as prescribed. Call with any concerns.)
[2020-09-26] MEDS ORDERED: SIMETHICONE 80 MG CHEW TAB PO PRN (09:00)
[2020-09-26] MEDS: IBUPROFEN 800 MG TAB PO PRN (09:16)
[2020-09-26] MEDS: DOCUSATE SODIUM 100 MG CAP PO SCH (09:16)
[2020-09-26] MEDS: FERROUS SULFATE 325 MG TAB PO SCH (09:16)
[2020-09-26] MEDS: PRENATAL VIT27-FE FUMARATE-FOLIC ACID VIT TAB PO SCH (09:16)
[2020-09-26] MEDS: HYDROcodone/ACETAMINOPHEN 5-325 MG TAB PO PRN (15:48)
[2020-09-26 16:52] VITALS: BP 120/84
[2020-09-26] MEDS: LANOLIN/ZINC/DIMETHICONE (LANSINOH) 7 GM TP PRN (17:16)
== END 2020-09-26 19:43 | disposition home or self-care (01) | DRG 766 ==
LOC: TRG 21:17 → LD 21:25 → TRG 21:27 → OB 09-24 20:03
PROVIDERS: ADMIT Obstetrics & Gynecology; ATTEND Obstetrics & Gynecology
PROC: 10D00Z1 Extraction of Products of Conception, Low, Open Approach (ICD-10-PCS; principal; 2020-09-24)
PROC: 3E033VJ Introduction of Other Hormone into Peripheral Vein, Percutaneous Approach (ICD-10-PCS; 2020-09-24)
DX: O36.5930 Maternal care for other known or suspected poor fetal growth, third trimester, not applicable or unspecified (principal); O61.9 Failed induction of labor, unspecified; Z3A.37 37 weeks gestation of pregnancy; Z37.0 Single live birth
CPT/HCPCS: 36415; 59025; 59200; 85014; 85018; 85027; 86592; 86850; 86900; 86901; 88307; 99211; G0378; A6250; G0463; J0690; J1100; J1885; J2370; J2405; J2590; J2765; J3010; J7120; J7121; U0003

== ENCOUNTER 2020-12-30 20:43 | Emergency (ER) | payer MEDICAID ==
[2020-12-30] MEDS ORDERED: SODIUM CHLORIDE 0.9% 1000 ML 1,000 ML IV ONE ×2 (21:33→22:41)
[2020-12-30] MEDS ORDERED: ONDANSETRON 4 MG/2 ML INJ IV ONE (21:33)
--- NOTE | 2020-12-30 21:50 | Emergency Department Report ---
ED General Adult HPI - General Chief complaint: Weakness Stated complaint: WEAKNESS/EMESIS/DIARRHEA Time Seen by Provider: 12/30/20 21:08 Source: patient Mode of arrival: Ambulatory Limitations: No Limitations - History of Present Illness Initial comments: Patient presents with multiple complaints. She states that she feels generally weak. She has had nausea with vomiting and diarrhea. She just does not feel well. She believes that she is dehydrated. She has had subjective fevers and chills. She has not documented a temperature. There is no dysuria or cough. She has no chest pain. She states that she just feels very weak and fatigued. She states that she cannot stand for very long periods of time because she gets too weak to stand and has to sit. There has been no rash. She had a delivery approximately 2-1/2 months ago. As far she was aware, there were no complications from the delivery. She was told that she needed iron. She finished the prescription and has not been taking any other iron. She does not know if she could be anemic. Patient is also concerned for possible coronavirus. [place] She started having symptoms after she had [place] 2 [place] 3 [place]. - Related Data Previous Rx's Medication Instructions Recorded Last Taken Type Ferrous Sulfate [Feosol 325 MG tab] 325 mg PO BID #60 tablet 09/24/20 Unknown Rx Ibuprofen [Motrin] 800 mg PO TID PRN #30 tablet 09/24/20 Unknown Rx Lidocain2.5%/Prilocai2.5% [Emla] 5 gm TP ONCE #1 tube 09/24/20 Unknown Rx oxyCODONE /ACETAMINOPHEN [Percocet 1 - 2 tab PO Q6HR PRN #20 tablet 09/24/20 Unknown Rx 5/325 mg] Ondansetron [Zofran Odt] 4 mg PO Q8HR PRN #20 tab.rapdis 12/30/20 Unknown Rx Allergies Allergy/AdvReac Type Severity Reaction Status Date / Time No Known Allergies Allergy Verified 09/19/20 21:41 ED Review of Systems ROS: Stated complaint: WEAKNESS/EMESIS/DIARRHEA Other details as noted in HPI Comment: All other systems reviewed and negative Constitutional: see HPI Eyes: denies: vision change ENT: denies: throat pain Respiratory: denies: cough Cardiovascular: denies: chest pain Endocrine: denies: unexplained weight loss Gastrointestinal: as per HPI Genitourinary: denies: dysuria Musculoskeletal: denies: back pain Skin: denies: rash Hematological/Lymphatic: denies: easy bruising ED Past Medical Hx - Past Medical History Previous Medical History?: No Hx Hypertension: No Hx Heart Attack/AMI: No Hx Diabetes: No Hx Deep Vein Thrombosis: No Hx Liver Disease: No Hx Renal Disease: No Hx Sickle Cell Disease: No Hx Seizures: No Hx Asthma: No Hx HIV: No - Surgical History Past Surgical History?: No - Family History Family history: no significant - Social History Smoking Status: Never Smoker - Medications Home Medications: Home Medications Medication Instructions Recorded Confirmed Last Taken Type Ferrous Sulfate [Feosol 325 MG tab] 325 mg PO BID #60 tablet 09/24/20 Unknown Rx Ibuprofen [Motrin] 800 mg PO TID PRN #30 tablet 09/24/20 Unknown Rx Lidocain2.5%/Prilocai2.5% [Emla] 5 gm TP ONCE #1 tube 09/24/20 Unknown Rx oxyCODONE /ACETAMINOPHEN [Percocet 1 - 2 tab PO Q6HR PRN #20 tablet 09/24/20 Unknown Rx 5/325 mg] Ondansetron [Zofran Odt] 4 mg PO Q8HR PRN #20 tab.rapdis 12/30/20 Unknown Rx ED Physical Exam - General Limitations: No Limitations, Other (Pulse ox is noted to be normal. She is not hypoxic.) General appearance: alert, in no apparent distress - Head Head exam: Present: atraumatic, normocephalic, normal inspection - Eye Eye exam: Present: normal appearance, EOMI. Absent: scleral icterus - ENT ENT exam: Present: normal exam, mucous membranes moist, normal external ear exam - Neck Neck exam: Present: normal inspection. Absent: meningismus - Respiratory Respiratory exam: Present: normal lung sounds bilaterally. Absent: respiratory distress - Cardiovascular Cardiovascular Exam: Present: tachycardia, normal heart sounds - GI/Abdominal GI/Abdominal exam: Present: soft. Absent: tenderness, guarding, rebound - Extremities Exam Extremities exam: Present: normal capillary refill. Absent: calf tenderness - Back Exam Back exam: Absent: CVA tenderness (R), CVA tenderness (L) - Neurological Exam Neurological exam: Present: alert, oriented X3, CN II-XII intact, normal gait. Absent: motor sensory deficit - Psychiatric Psychiatric exam: Present: normal affect, normal mood - Skin Skin exam: Present: warm, dry ED Course Vital Signs 12/30/20 20:56 Temperature 101.4 F H Pulse Rate 129 H Respiratory 18 Rate Blood Pressure 119/84 O2 Sat by Pulse 96 Oximetry - Reevaluation(s) Reevaluation #1: 12/30/20 21:50 IV and labs have been ordered Reevaluation #2: 12/30/20 22:41 Tylenol has been ordered. ED Medical Decision Making - Lab Data Result diagrams: 12/30/20 21:49 12/30/20 21:49 Critical care attestation.: If time is entered above; I have spent that time in minutes in the direct care of this critically ill patient, excluding procedure time. ED Disposition Clinical Impression: General weakness, Dehydration, Acute febrile illness, Nausea & vomiting Disposition: HOME / SELF CARE / HOMELESS Is pt being admited?: No Condition: Stable Instructions: Fever, Adult, Fatigue, Nausea and Vomiting, Adult, [id number], Dehydration, Adult, [id number], Weakness Additional Instructions: Drink plenty water. Return for problems. Follow-up with your regular doctor for recheck and further management. Alternate Tylenol and ibuprofen for fever. Isolate at home and have a Covid test done as an outpatient. Prescriptions: Ondansetron [Zofran Odt] 4 mg PO Q8HR PRN #20 tab.rapdis PRN Reason: Nausea Referrals: PRIMARY CARE, [Referring] - 3-5 Days DIMITRIOS WOLF MD [Staff Physician] - 3-5 Days
[2020-12-30 22:12] LABS: Basophils % (Auto) 0.1 % (0.0-1.8); Hematocrit 37.5 % (30.3-42.9); Hemoglobin 13.5 gm/dl (10.1-14.3); Lymphocytes # (Auto) 1.1 K/mm3 (1.2-5.4); Lymphocytes % (Auto) 13.7 % (13.4-35.0); Mean Corpuscular HGB Conc 36 % (30-34); Mean Corpuscular Volume 78 fl (79-97); Monocytes # (Auto) 0.8 K/mm3 (0.0-0.8); Platelet Count 200 K/mm3 (140-440); Red Blood Count 4.78 M/mm3 (3.65-5.03); Red Cell Distribution Width 14.5 % (13.2-15.2)
[2020-12-30 22:26] LABS: Alanine Aminotransferase 38 units/L (7-56); Albumin 4.5 g/dL (3.9-5); Blood Urea Nitrogen 10 mg/dL (7-17); Calcium 9.4 mg/dL (8.4-10.2); Hemolysis Index 1
[2020-12-30 22:28] LABS: BUN/Creatinine Ratio 20
[2020-12-30] MEDS ORDERED: ACETAMINOPHEN 500 MG TAB PO ONE (22:40)
[2020-12-31 00:40] VITALS: BP 119/78
== END 2020-12-31 00:45 | disposition home or self-care (01) ==
LOC: ED 20:43
DX: R53.1 Weakness (principal); E86.0 Dehydration; R50.9 Fever, unspecified; R11.2 Nausea with vomiting, unspecified
CPT/HCPCS: 80053; 82728; 83615; 84703; 85025; 85379; 86140; 96361; 96374; 99283; J2405; J7030